=== PATIENT | female | born 1960 | race Hispanic/Latino ===

== ENCOUNTER 2016-12-14 12:28 | Emergency (ER) | payer MEDICAID ==
[2016-12-14 13:28] LABS: Basophils % (Auto) 1.2 % (0.0-1.8); Eosinophils % (Auto) 12.4 % (0.0-4.3); Hematocrit 35.9 % (30.3-42.9); Hemoglobin 11.9 gm/dl (10.1-14.3); Mean Corpuscular HGB Conc 33 % (30-34); Mean Corpuscular Hemoglobin 29 pg (28-32); Mean Corpuscular Volume 88 fl (79-97); Platelet Count 184 K/mm3 (140-440); Red Blood Count 4.06 M/mm3 (3.65-5.03); Red Cell Distribution Width 13.8 % (13.2-15.2); White Blood Count 7.7 K/mm3 (4.5-11.0)
[2016-12-14 13:45] LABS: Alanine Aminotransferase 11 units/L (7-56); Albumin 4.2 g/dL (3.9-5); Albumin/Globulin Ratio 1.5 %; Alkaline Phosphatase 68 units/L (35-129); Anion Gap 17 mmol/L; Blood Urea Nitrogen 14 mg/dL (7-17); Carbon Dioxide 28 mmol/L (22-30); Chloride 100.7 mmol/L (98-107); Glucose 102 mg/dL (65-100); Lipase 14 units/L (13-60); Potassium 3.9 mmol/L (3.6-5.0); Sodium 142 mmol/L (137-145)
[2016-12-14 14:20] LABS: Bilirubin,Urine NEG (Negative); Blood,Urine SM (Negative); Ketones,Urine NEG (Negative); Leukocyte Esterase,Urine MOD (Negative); Mucus,Urine FEW /HPF; Nitrite,Urine NEG (Negative); Protein,Urine <15 mg/dL mg/dL (Negative); Urobilinogen,Urine < 2.0 mg/dL (<2.0)
[2016-12-14] MEDS ORDERED: ROCEPHIN IM ONE (17:45)
[2016-12-14] MEDS ORDERED: ZOFRAN ODT PO ONE (17:45)
[2016-12-14] MEDS ORDERED: PERCOCET 5/325 PO ONE (17:45)
--- NOTE | 2016-12-14 19:14 | Emergency Department Report ---
Entered by ANTONY GLEASON, acting as scribe for NADEEM COLLADO PA. ED Abdominal Pain HPI - General Chief Complaint: Abdominal Pain Stated Complaint: FRANCINE Time Seen by Provider: 12/14/16 17:25 Source: patient Mode of arrival: Wheelchair Limitations: Physical Limitation (patient uses rolling walker) - History of Present Illness Initial Comments: 55 y/o female presents to the ED c/o abdominal pain x couple weeks. Associated symptoms include nausea, dysuria, frequency and urgency but she denies fever, chills, diarrhea and vomiting. Pain is described as 10/10 on a severity scale. No alleviating factors but aggravated with movement. Patient said that she had constipation but that has been resolved 2 weeks ago NKDA. Pain is located in her pelvic area and it comes and goes. She says she did not take anything over- the-counter for pain. Denies any blood in her urine. Patient also complaining chronic pain from arthritis and she says she see an orthopedic doctor but she is requesting a pain specialist. She is also requesting a health information assistant. Since that she has an orthopedic doctor and a primary care doctor but the primary care doctor will refer her to pain clinic or health information assistant. She has chronic pain. Patient is on oxygen for bronchitis, asthma and COPD. She denies that she has any difference in her breathing. It was reported on triage sheet the patient was complaining of difficulty breathing and she says she is usually short of breath. She denies any chest pain. MD Complaint: abdominal pain -: days(s) (abdominal pain and urinary burning x 4 days), year(s) (chronic pain from arthritis) Location: suprapubic Radiation: none Migration to: no migration Severity: severe Severity scale (0 -10): 10 Quality: aching Consistency: constant Improves With: nothing Worsens With: movement Context: other (patient with chronic pain from arthritis) Associated Symptoms: nausea, dysuria, other (frequency, urgency). denies: vomiting, diarrhea, fever, chills, constipation, hematemesis, hematochezia, melena, hematuria, anorexia, syncope Treatments Prior to Arrival: other (none) - Related Data Previous Rx's Medication Instructions Recorded Last Taken Type Omeprazole Magnesium [Prilosec Otc] 20 mg PO QDAY #3 tablet. 06/14/13 Unknown Rx Prednisone [predniSONE (Bill) ER 5 mg PO QDAY #3 tablet. 06/14/13 Unknown Rx TAB] Levofloxacin [Levaquin TAB] 500 mg PO QDAY #7 tablet 12/14/16 Unknown Rx Ondansetron [Zofran TAB] 4 mg PO Q8HR PRN #12 tablet 12/14/16 Unknown Rx traMADol [Ultram] 50 mg PO Q6HR PRN #20 tablet 12/14/16 Unknown Rx Allergies Allergy/AdvReac Type Severity Reaction Status Date / Time Iodinated Contrast Media - Allergy Rash Verified 12/14/16 12:53 IV Dye ED Review of Systems Comment: All other systems reviewed and negative Constitutional: no symptoms reported. denies: chills, fever, malaise, weakness Eyes: denies: eye pain, eye discharge, vision change ENT: denies: ear pain, throat pain, dental pain, hearing loss, epistaxis, congestion Respiratory: no symptoms reported Cardiovascular: denies: chest pain, palpitations, edema, paroxysmal nocturnal dyspnea Gastrointestinal: abdominal pain, nausea, constipation. denies: vomiting, diarrhea Genitourinary: urgency, dysuria, frequency. denies: hematuria, discharge Musculoskeletal: back pain, arthralgia. denies: joint swelling, myalgia Skin: denies: rash Neurological: abnormal gait (and uses a walker). denies: headache, weakness, numbness, paresthesias, confusion ED Past Medical Hx - Past Medical History Previous Medical History?: Yes Hx Diabetes: Yes (BORDERLINE) Hx GERD: Yes Hx Arthritis: Yes (RHEUMATOID) Hx Seizures: Yes (CHILD) Hx Asthma: Yes Hx COPD: Yes Additional medical history: NERVE DAMAGE LOWER LEGS. COON'S CYST LEFT KNEE. HYPOTHYROID. HIGH CHOLESTEROL. VERTIGO. HARD OF HEARING. PSORIASIS. CATARACTS - Surgical History Past Surgical History?: Yes Additional Surgical History: Skin graft 2013, , Hernia, and tubal ligation - Family History Family history: hypertension - Social History Smoking Status: Current Every Day Smoker Substance Use Type: Prescribed - Medications Home Medications: Home Medications Medication Instructions Recorded Confirmed Last Taken Type Omeprazole Magnesium [Prilosec Otc] 20 mg PO QDAY #3 tablet. 06/14/13 Unknown Rx Prednisone [predniSONE (Bill) ER 5 mg PO QDAY #3 tablet. 06/14/13 Unknown Rx TAB] Levofloxacin [Levaquin TAB] 500 mg PO QDAY #7 tablet 12/14/16 Unknown Rx Ondansetron [Zofran TAB] 4 mg PO Q8HR PRN #12 tablet 12/14/16 Unknown Rx traMADol [Ultram] 50 mg PO Q6HR PRN #20 tablet 12/14/16 Unknown Rx ED Physical Exam - General Limitations: Physical Limitation (patient uses a rolling walker) General appearance: alert, in no apparent distress - Head Head exam: Present: atraumatic, normocephalic, normal inspection - Eye Eye exam: Present: normal appearance, PERRL, EOMI. Absent: scleral icterus, conjunctival injection, nystagmus, periorbital swelling, periorbital tenderness Pupils: Present: normal accommodation - ENT ENT exam: Present: normal exam, normal orophraynx, mucous membranes moist, TM's normal bilaterally, normal external ear exam - Neck Neck exam: Present: normal inspection, full ROM. Absent: tenderness, meningismus, lymphadenopathy, thyromegaly - Respiratory Respiratory exam: Present: decreased breath sounds, other (wear oxygen 24/7). Absent: respiratory distress, wheezes, rales, rhonchi, stridor, chest wall tenderness, accessory muscle use, prolonged expiratory - Cardiovascular Cardiovascular Exam: Present: regular rate, normal rhythm, normal heart sounds. Absent: bradycardia, tachycardia, irregular rhythm, systolic murmur, diastolic murmur, rubs, gallop, S3, S4 - GI/Abdominal GI/Abdominal exam: Present: soft, normal bowel sounds. Absent: distended, tenderness, guarding, rebound, rigid, mass, bruit - Extremities Exam Extremities exam: Present: normal inspection, normal capillary refill, other ( brace on left knee due to chronic injury pain, chronic arthritis,no neurovascular compromise, 2+ pulses). Absent: full ROM (diminished strength. Bilateral lower extremity due to arthritis), tenderness, pedal edema, joint swelling, calf tenderness - Back Exam Back exam: Present: normal inspection, full ROM. Absent: tenderness, CVA tenderness (R), CVA tenderness (L), muscle spasm, paraspinal tenderness, vertebral tenderness, rash noted - Neurological Exam Neurological exam: Present: alert, oriented X3, abnormal gait (abnormal gait due to chronic pain from arthritis), motor sensory deficit (decrease in motor function bilateral lower extremity due to chronic pain. Sensation), reflexes normal - Psychiatric Psychiatric exam: Present: normal affect, normal mood - Skin Skin exam: Present: warm, dry, intact, normal color. Absent: rash ED Course Vital Signs 12/14/16 12:53 Temperature 98.6 F Pulse Rate 85 Respiratory 20 Rate Blood Pressure 106/58 O2 Sat by Pulse 97 Oximetry - Reevaluation(s) Reevaluation #1: 12/14/16 18:57 Patient given Percocet 5/325 2 tablets and Zofran 4 mg ODT and emergency room for pain. ED Medical Decision Making - Lab Data Result diagrams: 12/14/16 13:07 12/14/16 13:07 Lab Results 12/14/16 12/14/16 12/14/16 Range/Units 12:43 13:07 13:07 WBC 7.7 (4.5-11.0) K/mm3 RBC 4.06 (3.65-5.03) M/mm3 Hgb 11.9 (10.1-14.3) gm/dl Hct 35.9 (30.3-42.9) % MCV 88 (79-97) fl MCH 29 (28-32) pg MCHC 33 (30-34) % RDW 13.8 (13.2-15.2) % Plt Count 184 (140-440) K/mm3 Lymph % (Auto) 24.0 (13.4-35.0) % Mccone % (Auto) 7.8 H (0.0-7.3) % Eos % (Auto) 12.4 H (0.0-4.3) % Baso % (Auto) 1.2 (0.0-1.8) % Lymph # 1.9 (1.2-5.4) K/mm3 Mccone # 0.6 (0.0-0.8) K/mm3 Eos # 1.0 H (0.0-0.4) K/mm3 Baso # 0.1 (0.0-0.1) K/mm3 Seg Neutrophils % 54.6 (40.0-70.0) % Seg Neutrophils # 4.2 (1.8-7.7) K/mm3 Sodium 142 (137-145) mmol/L Potassium 3.9 (3.6-5.0) mmol/L Chloride 100.7 (98-107) mmol/L Carbon Dioxide 28 (22-30) mmol/L Anion Gap 17 mmol/L BUN 14 (7-17) mg/dL Creatinine 0.5 L (0.7-1.2) mg/dL Estimated GFR > 60 ml/min BUN/Creatinine Ratio 28.00 % Glucose 102 H (65-100) mg/dL POC Glucose 154 H (70-105) Calcium 9.0 (8.4-10.2) mg/dL Total Bilirubin 0.20 (0.1-1.2) mg/dL AST 12 (5-40) units/L ALT 11 (7-56) units/L Alkaline Phosphatase 68 (35-129) units/L Total Protein 7.0 (6.3-8.2) g/dL Albumin 4.2 (3.9-5) g/dL Albumin/Globulin Ratio 1.5 % Lipase 14 (13-60) units/L Urine Color (Yellow) Urine Turbidity (Clear) Urine pH (5.0-7.0) Ur Specific Crestline (1.003-1.030) Urine Protein (Negative) mg/dL Urine Glucose (UA) (Negative) mg/dL Urine Ketones (Negative) mg/dL Urine Blood (Negative) Urine Nitrite (Negative) Urine Bilirubin (Negative) Urine Urobilinogen (<2.0) mg/dL Ur Leukocyte Esterase (Negative) Urine WBC (Auto) (0.0-6.0) /HPF Urine RBC (Auto) (0.0-6.0) /HPF U Epithel Cells (Auto) (0-13.0) /HPF Hyaline Casts /LPF Urine Mucus /HPF 12/14/16 Range/Units 13:46 WBC (4.5-11.0) K/mm3 RBC (3.65-5.03) M/mm3 Hgb (10.1-14.3) gm/dl Hct (30.3-42.9) % MCV (79-97) fl MCH (28-32) pg MCHC (30-34) % RDW (13.2-15.2) % Plt Count (140-440) K/mm3 Lymph % (Auto) (13.4-35.0) % Mccone % (Auto) (0.0-7.3) % Eos % (Auto) (0.0-4.3) % Baso % (Auto) (0.0-1.8) % Lymph # (1.2-5.4) K/mm3 Mccone # (0.0-0.8) K/mm3 Eos # (0.0-0.4) K/mm3 Baso # (0.0-0.1) K/mm3 Seg Neutrophils % (40.0-70.0) % Seg Neutrophils # (1.8-7.7) K/mm3 Sodium (137-145) mmol/L Potassium (3.6-5.0) mmol/L Chloride (98-107) mmol/L Carbon Dioxide (22-30) mmol/L Anion Gap mmol/L BUN (7-17) mg/dL Creatinine (0.7-1.2) mg/dL Estimated GFR ml/min BUN/Creatinine Ratio % Glucose (65-100) mg/dL POC Glucose (70-105) Calcium (8.4-10.2) mg/dL Total Bilirubin (0.1-1.2) mg/dL AST (5-40) units/L ALT (7-56) units/L Alkaline Phosphatase (35-129) units/L Total Protein (6.3-8.2) g/dL Albumin (3.9-5) g/dL Albumin/Globulin Ratio % Lipase (13-60) units/L Urine Color Yellow (Yellow) Urine Turbidity Clear (Clear) Urine pH 6.0 (5.0-7.0) Ur Specific [place] 1.019 (1.003-1.030) Urine Protein <15 mg/dl (Negative) mg/dL Urine Glucose (UA) Neg (Negative) mg/dL Urine Ketones Neg (Negative) mg/dL Urine Blood Sm (Negative) Urine Nitrite Neg (Negative) Urine Bilirubin Neg (Negative) Urine Urobilinogen < 2.0 (<2.0) mg/dL Ur Leukocyte Esterase Mod (Negative) Urine WBC (Auto) 3.0 (0.0-6.0) /HPF Urine RBC (Auto) 8.0 (0.0-6.0) /HPF U Epithel Cells (Auto) 4.0 (0-13.0) /HPF Hyaline Casts 1 /LPF Urine Mucus Few /HPF Urine culture pending - Medical Decision Making ED course: Patient here complaining of dysuria and lower abdominal pain pelvic area. She has multiple other request for referral to dermatology and pain clinic and arthritis doctor. I told patient that I will give her referral to dermatology but her orthopedic or primary care doctor can refer her to pain management and that arthritis can be managed by her orthopedic doctor. Patient urinalysis positive for moderate leukocyte Estrace small amount of blood. Urine culture sent and pending. Patient was given Rocephin 1 g IM in emergency room for UTI without adverse reaction. He was given Percocet 5/325 2 tablets and Zofran 4 mg ODT for pain and nausea. Diagnosis and treatment plan discussed and I told patient that I could only give her Ultram on discharge and she is in agreement. Labs: UA positive leukocyte Estrace, small blood otherwise normal. CBC and BMP normal. Assessment/plan 1. Dysuria 2. Acute cystitis with hematuria 3. Pelvic pain 4. Chronic pain from osteoarthritis Patient discharged home in stable condition and referred to dermatology and she will talk to her primary care physician and orthopedic doctor regarding pain management referral. patient Discharged home with prescription for Ultram, Levaquin and Zofran. Patient discharged home from ED Medicare transport ED Disposition Clinical Impression: Dysuria, Cystitis with hematuria, Chronic pain syndrome, Pelvic pain, Nausea alone Disposition: - TO HOME OR SELFCARE Is pt being admited?: No Does the pt Need Aspirin: No Condition: Stable Instructions: Abdominal Pain (ED), Urinary Tract Infection in Women (ED), Dysuria (ED), Chronic Pain (ED) Additional Instructions: Please use Ultram as needed for pain and follow-up via primary care and orthopedic doctor in 2-3 days Takeantibiotic as prescribed for urinary tract infection drink plenty of water. Please stop smoking and as smoking with oxygen can cause a fire. Also, smoking with COPD can increase the progression of COPD Prescriptions: Levofloxacin [Levaquin TAB] 500 mg PO QDAY #7 tablet Ondansetron [Zofran TAB] 4 mg PO Q8HR PRN #12 tablet PRN Reason: Nausea traMADol [Ultram] 50 mg PO Q6HR PRN #20 tablet PRN Reason: Pain Referrals: PRIMARY CARE, [Primary Care Provider] - 2-3 Days PHILIPPE SALEEM MD [Staff Physician] - 3-5 Days This documentation as recorded by the VICTORINO contreras ELIZABETH,accurately reflects the service I personally performed and the decisions made by me,NADEEM COLLADO PA.
[2016-12-14 19:17] VITALS: BP 132/69
== END 2016-12-14 19:33 | disposition home or self-care (01) ==
LOC: ED 12:28
DX: N30.91 Cystitis, unspecified with hematuria (principal); G89.4 Chronic pain syndrome; M19.90 Unspecified osteoarthritis, unspecified site; K21.9 Gastro-esophageal reflux disease without esophagitis; J45.909 Unspecified asthma, uncomplicated; J44.9 Chronic obstructive pulmonary disease, unspecified; E03.9 Hypothyroidism, unspecified; E78.00 Pure hypercholesterolemia, unspecified; F17.200 Nicotine dependence, unspecified, uncomplicated; Z98.51 Tubal ligation status; Z91.041 Radiographic dye allergy status
CPT/HCPCS: 36415; 80053; 81001; 82962; 83690; 85025; 87086; 96372; 99284; J0696; Q0162

== ENCOUNTER 2016-12-29 12:11 | Emergency (ER) | payer MEDICAID ==
[2016-12-29 13:44] LABS: Hematocrit 32.3 % (30.3-42.9); Hemoglobin 10.4 gm/dl (10.1-14.3); Mean Corpuscular HGB Conc 32 % (30-34); Mean Corpuscular Hemoglobin 29 pg (28-32); Mean Corpuscular Volume 91 fl (79-97); Red Blood Count 3.57 M/mm3 (3.65-5.03); Red Cell Distribution Width 14.1 % (13.2-15.2); White Blood Count 9.1 K/mm3 (4.5-11.0)
[2016-12-29 13:45] LABS: Eosinophils % (Auto) 8.3 % (0.0-4.3); Platelet Count 138 K/mm3 (140-440)
[2016-12-29 13:46] LABS: Basophils % (Auto) 1.2 % (0.0-1.8); Diff Status Complete
[2016-12-29 13:58] LABS: BUN/Creatinine Ratio 33.33; Blood Urea Nitrogen 20 mg/dL (7-17); Calcium 8.7 mg/dL (8.4-10.2); Carbon Dioxide 28 mmol/L (22-30); Glucose 74 mg/dL (65-100)
[2016-12-29 13:59] LABS: Anion Gap 16 mmol/L; Potassium 4.3 mmol/L (3.6-5.0); Sodium 143 mmol/L (137-145)
[2016-12-29] MEDS ORDERED: FLEXERIL PO ONE (23:24)
--- NOTE | 2016-12-29 23:31 | Emergency Department Report ---
HPI - General Chief Complaint: Extremity Injury, Upper Time Seen by Provider: 12/29/16 23:24 - HPI HPI: Patient complaining of muscle aches upper and lower extremity, 4-10 mildly elevated with Ultram. Patient stated her Ultram helps the pain from a 7 out of 10 to 4 out of 10. Patient also state worsening of her psoriasis plaque in her hands and feet. Patient denies any fever, chills, night sweats, drainage from lesions. ED Past Medical Hx - Past Medical History Previous Medical History?: Yes Hx Diabetes: Yes (BORDERLINE) Hx GERD: Yes Hx Arthritis: Yes (RHEUMATOID) Hx Seizures: Yes (CHILD) Hx Asthma: Yes Hx COPD: Yes Additional medical history: NERVE DAMAGE LOWER LEGS. COON'S CYST LEFT KNEE. HYPOTHYROID. HIGH CHOLESTEROL. VERTIGO. HARD OF HEARING. PSORIASIS. CATARACTS - Surgical History Past Surgical History?: Yes Additional Surgical History: Skin graft 2012, , Hernia, and tubal ligation - Social History Smoking Status: Current Every Day Smoker Substance Use Type: None - Medications Home Medications: Home Medications Medication Instructions Recorded Confirmed Last Taken Type Omeprazole Magnesium [Prilosec Otc] 20 mg PO QDAY #3 tablet. 06/14/13 Unknown Rx Prednisone [predniSONE (Bill) ER 5 mg PO QDAY #3 tablet. 06/14/13 Unknown Rx TAB] Levofloxacin [Levaquin TAB] 500 mg PO QDAY #7 tablet 12/14/16 Unknown Rx Ondansetron [Zofran TAB] 4 mg PO Q8HR PRN #12 tablet 12/14/16 Unknown Rx traMADol [Ultram] 50 mg PO Q6HR PRN #20 tablet 12/14/16 Unknown Rx Cyclobenzaprine [Flexeril] 10 mg PO TID PRN #15 tablet 12/29/16 Unknown Rx ED Review of Systems ROS: Stated complaint: SPASM Other details as noted in HPI Comment: All other systems reviewed and negative Endocrine: no symptoms reported Gastrointestinal: as per HPI Genitourinary: as per HPI Skin: rash, lesions Physical Exam - Physical Exam Vital Signs: Vital Signs 12/29/16 12/29/16 12:17 18:00 Temperature 98.3 F Pulse Rate 87 83 Respiratory 16 18 Rate Blood Pressure 109/64 100/62 O2 Sat by Pulse 100 100 Oximetry Physical Exam: Physical Exam: - General Limitations: No Limitations General appearance: alert, in no apparent distress, obese - Head Head exam: Present: atraumatic, normocephalic - Eye Eye exam: Present: normal appearance - ENT ENT exam: Present: mucous membranes moist - Neck Neck exam: Present: normal inspection - Respiratory Respiratory exam: Present: normal lung sounds bilaterally. Absent: respiratory distress - Cardiovascular Cardiovascular Exam: Present: normal rhythm, tachycardia. Absent: systolic murmur, diastolic murmur, rubs, gallop - GI/Abdominal GI/Abdominal exam: Present: soft, normal bowel sounds - Extremities Exam Extremities exam: Present: normal inspection - Back Exam Back exam: Present: normal inspection - Neurological Exam Neurological exam: Present: alert, oriented X3 - Psychiatric Psychiatric exam: normal affect and mood - Skin Skin exam: Present: Psoriasis plaques in hands and feet ED Course Vital Signs 12/29/16 12/29/16 12:17 18:00 Temperature 98.3 F Pulse Rate 87 83 Respiratory 16 18 Rate Blood Pressure 109/64 100/62 O2 Sat by Pulse 100 100 Oximetry ED Medical Decision Making - Lab Data Result diagrams: 12/29/16 12:55 12/29/16 12:55 Critical care attestation.: If time is entered above; I have spent that time in minutes in the direct care of this critically ill patient, excluding procedure time. ED Disposition Clinical Impression: Plaque psoriasis, Muscle spasm Disposition: DC-01 TO HOME OR SELFCARE Is pt being admited?: No Does the pt Need Aspirin: No Condition: Stable Prescriptions: Cyclobenzaprine [Flexeril] 10 mg PO TID PRN #15 tablet PRN Reason: Muscle Spasm Referrals: PRIMARY CARE, [Primary Care Provider] - 3-5 Days
[2016-12-30 00:03] VITALS: BP 111/62
== END 2016-12-30 00:03 | disposition home or self-care (01) ==
LOC: ED 12:11
DX: L40.0 Psoriasis vulgaris (principal); M62.838 Other muscle spasm; E11.9 Type 2 diabetes mellitus without complications; K21.9 Gastro-esophageal reflux disease without esophagitis; M19.90 Unspecified osteoarthritis, unspecified site; J44.9 Chronic obstructive pulmonary disease, unspecified; F17.210 Nicotine dependence, cigarettes, uncomplicated
CPT/HCPCS: 36415; 80048; 85025; 99284

== ENCOUNTER 2017-01-27 17:03 | Emergency (ER) | payer MEDICAID ==
--- NOTE | 2017-01-27 18:56 | Emergency Department Report ---
ED Dizziness HPI - General Chief Complaint: Chest Pain Stated Complaint: CP Time Seen by Provider: 01/27/17 18:55 Source: patient Mode of arrival: Ambulatory Limitations: No Limitations - Related Data Previous Rx's Medication Instructions Recorded Last Taken Type Omeprazole Magnesium [Prilosec Otc] 20 mg PO QDAY #3 tablet. 06/14/13 Unknown Rx Prednisone [predniSONE (Bill) ER 5 mg PO QDAY #3 tablet. 06/14/13 Unknown Rx TAB] Levofloxacin [Levaquin TAB] 500 mg PO QDAY #7 tablet 12/14/16 Unknown Rx Ondansetron [Zofran TAB] 4 mg PO Q8HR PRN #12 tablet 12/14/16 Unknown Rx traMADol [Ultram] 50 mg PO Q6HR PRN #20 tablet 12/14/16 Unknown Rx Cyclobenzaprine [Flexeril] 10 mg PO TID PRN #15 tablet 12/29/16 Unknown Rx Allergies Allergy/AdvReac Type Severity Reaction Status Date / Time Iodinated Contrast Media - Allergy Rash Verified 12/14/16 12:53 IV Dye ED Review of Systems ROS: Stated complaint: CP Other details as noted in HPI ED Past Medical Hx - Past Medical History Hx Diabetes: Yes (BORDERLINE) Hx GERD: Yes Hx Arthritis: Yes (RHEUMATOID) Hx Seizures: Yes (CHILD) Hx Asthma: Yes Hx COPD: Yes Additional medical history: NERVE DAMAGE LOWER LEGS. COON'S CYST LEFT KNEE. HYPOTHYROID. HIGH CHOLESTEROL. VERTIGO. HARD OF HEARING. PSORIASIS. CATARACTS - Surgical History Additional Surgical History: Skin graft 2013, , Hernia, and tubal ligation - Social History Smoking Status: Current Every Day Smoker Substance Use Type: None - Medications Home Medications: Home Medications Medication Instructions Recorded Confirmed Last Taken Type Omeprazole Magnesium [Prilosec Otc] 20 mg PO QDAY #3 tablet. 06/14/13 Unknown Rx Prednisone [predniSONE (Bill) ER 5 mg PO QDAY #3 tablet. 06/14/13 Unknown Rx TAB] Levofloxacin [Levaquin TAB] 500 mg PO QDAY #7 tablet 12/14/16 Unknown Rx Ondansetron [Zofran TAB] 4 mg PO Q8HR PRN #12 tablet 12/14/16 Unknown Rx traMADol [Ultram] 50 mg PO Q6HR PRN #20 tablet 12/14/16 Unknown Rx Cyclobenzaprine [Flexeril] 10 mg PO TID PRN #15 tablet 12/29/16 Unknown Rx ED Physical Exam - General Limitations: No Limitations ED Course Vital Signs 01/27/17 17:30 Temperature 98.4 F Pulse Rate 74 Respiratory 24 Rate Blood Pressure 100/62 O2 Sat by Pulse 100 Oximetry Critical care attestation.: If time is entered above; I have spent that time in minutes in the direct care of this critically ill patient, excluding procedure time. ED Disposition Condition: Stable
--- NOTE | 2017-01-27 19:01 | Emergency Department Report ---
Chief Complaint: Chest Pain Stated Complaint: CP Time Seen by Provider: 01/27/17 18:55 - HPI History of Present Illness: Patient reports that she is having chest pain all day and shortness of breath. Report abdominal pain from chronic constipation times one none. Patient says that she has COPD and rheumatoid arthritis. She still smoking. Patient while in the emergency room went to have some cigarettes. She also reported that she isn't oxygen and also has asthma, nerve damage to her legs, vertigo, hypothyroidism, psoriasis seizure disorder. She reports her pain is 10 out of 10 generalized. Denies any nausea or vomiting. Chest pain and abdominal pain is 10 out of 10 and feels achy. She says she wears oxygen truly does this cannula when she is at home but her oxygenation is 100% on room air. She denies any fever or chills. Denies any cough and - ROS Review of Systems: Systems are negative unless stated in HPI above - Exam Vital Signs: Vital Signs 01/27/17 17:30 Temperature 98.4 F Pulse Rate 74 Respiratory 24 Rate Blood Pressure 100/62 O2 Sat by Pulse 100 Oximetry Physical Exam: Gen.: This is a 56-year-old female well-nourished well-developed in no acute distress. Lungs: Diminished energy throughout lung soler, no adventitious sounds heard. Shortness of breath and exertion which is normal for patient. Abdomen: Nontender to palpate in all quadrant no guarding rebound tenderness. Normal bowel sounds in all quadrants CV: S1, S2. Regular rate and rhythm negative murmur MSE screening note: Focused history and physical exam performed. Due to findings the following was ordered:See mdm ED Medical Decision Making - Medical Decision Making MDM: Patient screened by provider in triage area. Appropriate protocol initiated and patient to be seen in main ED by ED Disposition for MSE Condition: Stable
[2017-01-27 19:47] LABS: Basophils % (Auto) 0.3 % (0.0-1.8); Eosinophils % (Auto) 4.6 % (0.0-4.3); Hematocrit 30.2 % (30.3-42.9); Hemoglobin 10.3 gm/dl (10.1-14.3); Mean Corpuscular HGB Conc 34 % (30-34); Mean Corpuscular Hemoglobin 30 pg (28-32); Mean Corpuscular Volume 88 fl (79-97); Platelet Count 167 K/mm3 (140-440); Red Blood Count 3.45 M/mm3 (3.65-5.03); Red Cell Distribution Width 14.4 % (13.2-15.2); White Blood Count 9.1 K/mm3 (4.5-11.0)
[2017-01-27 20:01] LABS: Alanine Aminotransferase 6 units/L (7-56); Albumin 4.3 g/dL (3.9-5); Albumin/Globulin Ratio 2.2 %; Alkaline Phosphatase 64 units/L (35-129); Anion Gap 17 mmol/L; BUN/Creatinine Ratio 32; Bilirubin,Total < 0.20 mg/dL (0.1-1.2); Blood Urea Nitrogen 19 mg/dL (7-17); Calcium 8.3 mg/dL (8.4-10.2); Carbon Dioxide 25 mmol/L (22-30); Chloride 102.6 mmol/L (98-107); Glucose 125 mg/dL (65-100); Lipase 15 units/L (13-60); Potassium 4.3 mmol/L (3.6-5.0); Sodium 140 mmol/L (137-145); Total Protein 6.3 g/dL (6.3-8.2)
[2017-01-28 01:55] VITALS: BP 117/61
--- NOTE | 2017-01-28 07:56 | XRay Report ---
KUB: Constipation. No bowel dilatation and no increased fecal load identified. No free air. No soft tissue mass. Focal ring of calcification in the left upper quadrant possibly representing small vascular aneurysm. Impression: No acute pathology identified.
--- NOTE | 2017-01-28 08:05 | XRay Report ---
PA and lateral chest: SOB. Compared to prior exam in May 2013. There is pleural thickening at the right lung base with blunting of the costophrenic angle not present on prior study. The lungs otherwise appear generally clear. The aorta is tortuous but the heart is normal in size. These findings are unchanged. Impressions: Nonspecific pleural thickening at right lung base since prior exam. Length of chronicity is unclear.
== END 2017-01-28 06:48 | disposition left against medical advice (07) ==
LOC: ED 17:03
DX: R07.89 Other chest pain (principal); R06.02 Shortness of breath; R10.9 Unspecified abdominal pain; Z53.21 Procedure and treatment not carried out due to patient leaving prior to being seen by health care provider
CPT/HCPCS: 36415; 71020; 74020; 80053; 83690; 84484; 85025; 93005; 93010

== ENCOUNTER 2017-06-26 17:15 | Emergency (ER) | payer MEDICAID ==
[2017-06-26 18:10] LABS: Basophils % (Auto) 0.1 % (0.0-1.8); Eosinophils # (Auto) 0.5 K/mm3 (0.0-0.4); Eosinophils % (Auto) 6.3 % (0.0-4.3); Hematocrit 30.6 % (30.3-42.9); Hemoglobin 10.1 gm/dl (10.1-14.3); Lymphocytes # (Auto) 2.2 K/mm3 (1.2-5.4); Lymphocytes % (Auto) 25.6 % (13.4-35.0); Mean Corpuscular HGB Conc 33 % (30-34); Mean Corpuscular Hemoglobin 29 pg (28-32); Mean Corpuscular Volume 89 fl (79-97); Monocytes # (Auto) 0.6 K/mm3 (0.0-0.8); Monocytes % (Auto) 6.9 % (0.0-7.3); Platelet Count 180 K/mm3 (140-440); Red Blood Count 3.44 M/mm3 (3.65-5.03); Red Cell Distribution Width 15.2 % (13.2-15.2)
[2017-06-26 18:21] LABS: BUN/Creatinine Ratio 32; Blood Urea Nitrogen 16 mg/dL (7-17); Calcium 8.4 mg/dL (8.4-10.2); Hemolysis Index 5
[2017-06-26 20:15] LABS: Bacteria,Urine 1+ /HPF (Negative); Bilirubin,Urine NEG (Negative); Blood,Urine NEG (Negative); Color,Urine Yellow (Yellow); Mucus,Urine FEW /HPF; Protein,Urine <15 mg/dL mg/dL (Negative); Urobilinogen,Urine < 2.0 mg/dL (<2.0)
[2017-06-26 20:23] LABS: Amphetamine Screen,Urine PRESUMPTIVE NEGATIVE; Benzodiazepines Screen,Urine PRESUMPTIVE NEGATIVE; Cannabinoid Screen,Urine PRESUMPTIVE NEGATIVE; Cocaine Screen,Urine PRESUMPTIVE NEGATIVE; Methadone Screen,Urine PRESUMPTIVE NEGATIVE; Opiate Screen,Urine PRESUMPTIVE NEGATIVE
--- NOTE | 2017-06-26 22:46 | Emergency Department Report ---
HPI - General Chief Complaint: Psych Time Seen by Provider: 06/26/17 19:07 - HPI HPI: The patient's physician female presents for evaluation of mental health. The patient reports experiencing constant severe sadness and upsetness for 1-2 hours earlier today. She states that she informed her caregiver that she did not want to live anymore because she wants to be moved to another living facility due to her's approval of her roommate. She is adamant that she has no thoughts of harming herself and only stated so in attempt to get placed in another living facility. The patient denies fever, headache, unexplained weight loss or weight gain, heat or cold intolerance, skin, hair, or nail changes, neuro deficits, suicidal ideations, homicidal ideations, or auditory or visual hallucinations. ED Past Medical Hx - Past Medical History Hx Diabetes: Yes (BORDERLINE) Hx GERD: Yes Hx Arthritis: Yes (RHEUMATOID) Hx Seizures: Yes (CHILD) Hx Asthma: Yes Hx COPD: Yes Additional medical history: NERVE DAMAGE LOWER LEGS. COON'S CYST LEFT KNEE. HYPOTHYROID. HIGH CHOLESTEROL. VERTIGO. HARD OF HEARING. PSORIASIS. CATARACTS - Surgical History Past Surgical History?: Yes Additional Surgical History: Skin graft 2013, , Hernia, and tubal ligation - Social History Smoking Status: Current Every Day Smoker Substance Use Type: None - Medications Home Medications: Home Medications Medication Instructions Recorded Confirmed Last Taken Type Omeprazole Magnesium [Prilosec Otc] 20 mg PO QDAY #3 tablet. 06/14/13 Unknown Rx ED Review of Systems ROS: Stated complaint: SUICIDAL THOUGHTS Other details as noted in HPI Constitutional: denies: fever ENT: denies: throat or neck pain Respiratory: denies: cough, shortness of breath Cardiovascular: denies: chest pain Endocrine: denies unexplained weight loss or gain Gastrointestinal: denies: abdominal pain, nausea Genitourinary: denies: dysuria Musculoskeletal: denies: leg swelling Skin: denies: rash Neurological: denies: headache Hematological/Lymphatic: denies: easy bleeding or easy bruising Psych: reports sadness and anger Physical Exam - Physical Exam Physical Exam: General: well-nourished, well-developed, no acute distress Head: Normocephalic, atraumatic Eyes: normal sclera ENT: Mucous membranes are pink and moist Neck: trachea midline, neck supple, No neck stiffness, no cervical adenopathy Respiratory: Breath sounds equal bilaterally, no wheezing, rales, or rhonchi Cardio: S1 and S2 present, no murmurs, rubs, gallops, capillary refill is brisk Abdomen: Normoactive bowel sounds, soft abdomen, no rigidity, no guarding or rebound tenderness Chest WALL/Back: No tenderness to palpation of the chest wall, no CVA tenderness with percussion Musc: No pitting edema Skin: No rash Neuro: no facial drooping, normal speech Psych: Normal affect, depressed mood, normal insight, normal behavior, no suicidal or homicidal ideation ED Medical Decision Making - Lab Data Result diagrams: 06/26/17 18:00 06/26/17 18:00 - Medical Decision Making The patient was seen and examined by myself. The patient is placed on a clinical research monitor and continuous pulse ox. On initial evaluation, the patient was found to be in no distress. Labs are obtained. Lab results are grossly unremarkable. The patient is medically clear. Mental health is consulted. Mental health evaluates the patient and agrees that the patient is not a risk for harming herself or others. The patient was reevaluated and reported that their symptoms were markedly improved. The patient is stable for discharge with outpatient follow-up. The patient is given follow-up and return instructions. The patient expressed understanding and agreed with the plan. The patient is discharged in stable condition. Critical care attestation.: If time is entered above; I have spent that time in minutes in the direct care of this critically ill patient, excluding procedure time. ED Disposition Clinical Impression: Mood disorder Depressed Qualifiers: Depression Type: unspecified Qualified Code(s): F32.9 - Major depressive disorder, single episode, unspecified Disposition: - TO HOME OR SELFCARE Is pt being admited?: No Does the pt Need Aspirin: No Condition: Stable Instructions: Mood Disorders (ED), Depression (ED) Referrals: PRIMARY CARE, [Primary Care Provider] - 3-5 Days [facility] [Outside] - 3-5 Days Time of Disposition: 22:48
[2017-06-27 03:31] VITALS: BP 104/66
== END 2017-06-27 03:05 | disposition home or self-care (01) ==
LOC: ED 17:15
DX: F39 Unspecified mood [affective] disorder (principal); F32.9 Major depressive disorder, single episode, unspecified; K21.9 Gastro-esophageal reflux disease without esophagitis; M06.9 Rheumatoid arthritis, unspecified; J45.909 Unspecified asthma, uncomplicated; F17.200 Nicotine dependence, unspecified, uncomplicated
CPT/HCPCS: 36415; 80048; 80307; 81001; 85025; 99283; G0480; 80320

== ENCOUNTER 2017-06-27 04:11 | Emergency (ER) | payer MEDICAID ==
--- NOTE | 2017-06-27 09:39 | Ultrasound Report ---
ULTRASOUND EXTREMITY NONVASCULAR LEFT History: Left hand swelling, mass. Technique: Grayscale ultrasound with color Doppler interrogation. Findings: Ultrasound demonstrates 2 ovoid masses within the palmar soft tissues of the left hand. The largest mass overlies the thenar eminence and measures 4.1 x 2.5 x 4.5 cm. A second similar appearing mass overlies the hypo-thenar eminence and measures 3.1 x 2.1 x 2.4 cm. These masses demonstrate similar echogenicity to subcutaneous fat. There is trace internal perfusion on color Doppler interrogation. No cystic change or calcifications. These may represent lipomas. Impression: Left palmar masses as outlined above which are most consistent with lipomas on ultrasound. These would be best evaluated with MRI with and without contrast if further evaluation is needed.
[2017-06-27 10:34] VITALS: BP 108/53
--- NOTE | 2017-06-27 10:39 | Emergency Department Report ---
Upper Extremity - HPI Chief Complaint: Extremity Injury, Upper Stated Complaint: SWOLLING HAND Time Seen by Provider: 06/27/17 07:48 Upper Extremity: Left Hand (swollen and pain) Occurred When: >5 Days (3 months) Mechanism: Unsure Severity: moderate Symptoms: Yes Pain with Movement, Yes Swelling, No Deformity, No Limited Range of Movement, No Numbness, No Weakness, No Bruising/Ecchymosis, No Laceration or Abrasion Other History: This is a 56 y.o. female that presents with swelling of left hand for 3 months. She don't recall injury. Reports waking up with a swollen hand. She had x-rays done a few months ago and they where normal. Reports it is hard to wash hair or dishes because of swelling. Her PCP was going to send her to a hand specialist at [facility] but she can't get them on the phone. Denies numbness, tingling, and discoloration. ED Review of Systems ROS: Stated complaint: SWOLLING HAND Other details as noted in HPI Constitutional: denies: chills, fever Respiratory: denies: cough, shortness of breath, wheezing Cardiovascular: denies: chest pain, palpitations Gastrointestinal: denies: abdominal pain, nausea, diarrhea Musculoskeletal: joint swelling (left hand). denies: back pain, arthralgia Skin: other. denies: rash, lesions Neurological: denies: headache, weakness, paresthesias ED Past Medical Hx - Past Medical History Previous Medical History?: Yes Hx Diabetes: Yes (BORDERLINE) Hx GERD: Yes Hx Arthritis: Yes (RHEUMATOID) Hx Seizures: Yes (CHILD) Hx Asthma: Yes Hx COPD: Yes Additional medical history: NERVE DAMAGE LOWER LEGS. COON'S CYST LEFT KNEE. HYPOTHYROID. HIGH CHOLESTEROL. VERTIGO. HARD OF HEARING. PSORIASIS. CATARACTS - Surgical History Past Surgical History?: Yes Additional Surgical History: Skin graft 2013, , Hernia, and tubal ligation - Social History Smoking Status: Current Every Day Smoker Substance Use Type: None - Medications Home Medications: Home Medications Medication Instructions Recorded Confirmed Last Taken Type Omeprazole Magnesium [Prilosec Otc] 20 mg PO QDAY #3 tablet. 06/14/13 Unknown Rx Upper Extremity Exam - Exam General: Vital signs noted. No distress. Alert and acting appropriately. Head and Torso: No HEENT Abnormality, No Neck Tenderness, No Chest/Lungs Abnormality, No Abdominal Tenderness, No Back Tenderness Shoulder Exam: Yes Normal Range of Motion in Shoulder, No Shoulder Tenderness, No Clavicle Tenderness, No Shoulder Deformity, No AC Joint Tenderness Arm Exam: No Arm/Humerus Tenderness, No Arm Deformity Elbow: Yes Normal Range of Motion in Elbow, No Elbow Tenderness, No Elbow Deformity Forearm: No Forearm Tenderness, No Forearm Deformity, No Pain with Pronation, No Pain with Supination Wrist: Yes Wrist Tenderness, Yes Normal ROM in Wrist, No Wrist Deformity, No Snuffbox Tenderness, No Pain with Axial Thumb Compression Hand: Yes Hand Deformity (2 cm mass at medial menon region of left hand, nontender, no redness), Yes Normal ROM in Digit(s), No Hand Tenderness, No Digit Tenderness, No Digit(s) Deformity, No Tendon Dysfunction CMS Exam: Yes Normal Distal Pulses, Yes Normal Capillary Refill, Yes Normal Distal Sensation, No Broken Skin ED Course Vital Signs 06/27/17 06/27/17 06:37 10:32 Temperature 98.2 F 98.8 F Pulse Rate 95 H 85 Respiratory 20 20 Rate Blood Pressure 92/56 108/53 [Right] O2 Sat by Pulse 95 98 Oximetry ED Medical Decision Making - Radiology Data Radiology results: report reviewed US of soft tissue of left hand: left palmar mass which is consistent with lipomas. Need MRI w/o contrast for further evaluation. - Medical Decision Making 56 y.o. female that presents with left hand swelling for 3 months. No distress noted. Patient examined by me. Vitals stable. US of left hand: left palmar mass which is consistent with lipomas. Need MRI w/o contrast for further evaluation. Discussed results with patient. Encouraged to f/u with PCP and [facility] hand specialist. Discharged home in stable condition. Critical care attestation.: If time is entered above; I have spent that time in minutes in the direct care of this critically ill patient, excluding procedure time. ED Disposition Clinical Impression: Lipoma of hand Mass of hand Qualifiers: Laterality: left Qualified Code(s): R22.32 - Localized swelling, mass and lump , left upper limb Disposition: - TO HOME OR SELFCARE Is pt being admited?: No Does the pt Need Aspirin: No Condition: Stable Instructions: Lipoma (ED) Additional Instructions: Follow up with primary care provider in 24-72 hours. Follow up with hand specialist at [facility]. Referrals: [facility] [Outside] - 3-5 Days [facility] [Outside] - 3-5 Days Time of Disposition: 10:48 Print Language: GEORGIAN
== END 2017-06-27 15:08 | disposition home or self-care (01) ==
LOC: ED 04:11
DX: D17.39 Benign lipomatous neoplasm of skin and subcutaneous tissue of other sites (principal); K21.9 Gastro-esophageal reflux disease without esophagitis; M06.9 Rheumatoid arthritis, unspecified; J44.9 Chronic obstructive pulmonary disease, unspecified; E03.9 Hypothyroidism, unspecified; E78.00 Pure hypercholesterolemia, unspecified; F17.200 Nicotine dependence, unspecified, uncomplicated; Z98.51 Tubal ligation status; Z91.041 Radiographic dye allergy status
CPT/HCPCS: 36415; 84550; 99284

== ENCOUNTER 2018-11-16 16:01 | Emergency (ER) | payer MEDICAID ==
--- NOTE | 2018-11-16 16:19 | Emergency Department Report ---
Blank Doc - Documentation Documentation: This is a 57-year-old female that presents with generalized numbness/tingling sensation and right knee pain. This initial assessment/diagnostic orders/clinical plan/treatment(s) is/are subject to change based on patient's health status, clinical progression and re- assessment by fellow clinical providers in the ED. Further treatment and workup at subsequent clinical providers discretion. Patient/guardians urged not to elope from the ED as their condition may be serious if not clinically assessed and managed. Initial orders include: 1- Patient sent to MAIN ED for further evaluation and treatment 2- xray 3- labs
[2018-11-16 16:50] LABS: Basophils % (Auto) 0.5 % (0.0-1.8); Eosinophils # (Auto) 0.3 K/mm3 (0.0-0.4); Eosinophils % (Auto) 3.6 % (0.0-4.3); Hematocrit 30.5 % (30.3-42.9); Hemoglobin 9.8 gm/dl (10.1-14.3); Lymphocytes # (Auto) 1.8 K/mm3 (1.2-5.4); Lymphocytes % (Auto) 20.8 % (13.4-35.0); Mean Corpuscular HGB Conc 32 % (30-34); Mean Corpuscular Volume 92 fl (79-97); Monocytes # (Auto) 0.5 K/mm3 (0.0-0.8); Monocytes % (Auto) 6.2 % (0.0-7.3); Platelet Count 189 K/mm3 (140-440); Red Blood Count 3.34 M/mm3 (3.65-5.03)
--- NOTE | 2018-11-16 16:58 | XRay Report ---
XR knee 3V RT INDICATION / CLINICAL INFORMATION: knee pain. COMPARISON: None available. FINDINGS: BONES/JOINT(S): No acute fracture or subluxation. Moderate tricompartmental DJD with joint space loss and marginal osteophyte formation. Small suprapatellar joint effusion. No aggressive appearing bone lesions. SOFT TISSUES: No significant abnormality. ADDITIONAL FINDINGS: None. Signer Name: Carlos Duckworth MD Signed: 11/16/2018 4:54 PM Workstation Name: [id number]
[2018-11-16 17:07] LABS: Alanine Aminotransferase 9 units/L (7-56); Albumin 4.2 g/dL (3.9-5); BUN/Creatinine Ratio 30; Blood Urea Nitrogen 18 mg/dL (7-17); Calcium 9.1 mg/dL (8.4-10.2); Hemolysis Index 11
[2018-11-16] MEDS ORDERED: MORPHINE IV ONE (20:34)
[2018-11-16] MEDS ORDERED: ZOFRAN IV ONE (20:34)
--- NOTE | 2018-11-16 20:38 | Emergency Department Report ---
ED General Adult HPI - General Chief complaint: Pain General Stated complaint: NUMB/HURTING ALL OVER (R) KNEE PAIN Time Seen by Provider: 11/16/18 16:18 Source: patient, EMS Mode of arrival: Wheelchair Limitations: No Limitations - History of Present Illness Initial comments: Patient is 57 years old female with history of COPD and migraine. Patient pre sented to the ER complaining of headache, similar to previous headache except for generalized numbness that she has this time. She also complaining of right knee pain for the last 3 weeks. Patient denied any recent injury. No fever or chills. Patient denied any weakness, bowel or bladder incontinence. Severity scale (0 -10): 10 - Related Data Previous Rx's Medication Instructions Recorded Last Taken Type Omeprazole Magnesium [Prilosec Otc] 20 mg PO QDAY #3 tablet. 06/14/13 Unknown Rx Allergies Allergy/AdvReac Type Severity Reaction Status Date / Time Iodinated Contrast- Oral and Allergy Rash Verified 06/26/17 17:43 IV Dye ED Review of Systems ROS: Stated complaint: NUMB/HURTING ALL OVER (R) KNEE PAIN Other details as noted in HPI Comment: All other systems reviewed and negative Constitutional: denies: chills, fever Respiratory: denies: cough, orthopnea, shortness of breath, SOB with exertion, SOB at rest, wheezing Cardiovascular: denies: chest pain, palpitations Gastrointestinal: denies: abdominal pain, nausea, vomiting, diarrhea, constipation, hematemesis, melena, hematochezia Musculoskeletal: denies: back pain Neurological: headache, numbness. denies: weakness, paresthesias, confusion, abnormal gait ED Past Medical Hx - Past Medical History Hx Diabetes: Yes (BORDERLINE) Hx GERD: Yes Hx Arthritis: Yes (RHEUMATOID) Hx Seizures: Yes (CHILD) Hx Asthma: Yes Hx COPD: Yes Additional medical history: NERVE DAMAGE LOWER LEGS. COON'S CYST LEFT KNEE. HYPOTHYROID. HIGH CHOLESTEROL. VERTIGO. HARD OF HEARING. PSORIASIS. C ATARACTS - Surgical History Additional Surgical History: Skin graft 2013, , Hernia, and tubal ligation - Social History Smoking Status: Unknown if ever smoked Substance Use Type: None - Medications Home Medications: Home Medications Medication Instructions Recorded Confirmed Last Taken Type Omeprazole Magnesium [Prilosec Otc] 20 mg PO QDAY #3 tablet. 06/14/13 06/26/17 Unknown Rx ED Physical Exam - General Limitations: No Limitations General appearance: alert, in no apparent distress - Head Head exam: Present: atraumatic, normocephalic, normal inspection - Eye Eye exam: Present: normal appearance, PERRL - ENT ENT exam: Present: normal exam, normal orophraynx, mucous membranes moist - Neck Neck exam: Present: normal inspection, full ROM. Absent: tenderness, meningismus, lymphadenopathy, thyromegaly - Respiratory Respiratory exam: Present: normal lung sounds bilaterally - Cardiovascular Cardiovascular Exam: Present: regular rate, normal rhythm, normal heart sounds - GI/Abdominal GI/Abdominal exam: Present: soft, normal bowel sounds. Absent: distended, tenderness, guarding, rebound, rigid, organomegaly, mass, bruit, pulsatile mass, hernia - Extremities Exam Extremities exam: Present: normal inspection, full ROM, normal capillary refill - Back Exam Back exam: Present: normal inspection, full ROM. Absent: CVA tenderness (R), CVA tenderness (L), muscle spasm, paraspinal tenderness, vertebral tenderness - Neurological Exam Neurological exam: Present: alert, oriented X3, CN II-XII intact, normal gait, reflexes normal - Psychiatric Psychiatric exam: Present: normal mood - Skin Skin exam: Present: warm, intact, normal color ED Course Vital Signs 11/16/18 11/16/18 16:16 16:23 Temperature 98.5 F 98.3 F Pulse Rate 89 90 Respiratory 17 18 Rate Blood Pressure 114/75 Blood Pressure 114/75 [Left] O2 Sat by Pulse 94 94 Oximetry ED Medical Decision Making - Lab Data Result diagrams: 11/16/18 16:25 11/16/18 16:25 - Radiology Data Radiology results: report reviewed CT brain is negative for acute finding. - Medical Decision Making Patient is 57 years old female with history of COPD and migraine. Patient presented to the ER complaining of headache, similar to previous headache except for generalized numbness that she has this time. She also complaining of right knee pain for the last 3 weeks. Patient denied any recent injury. No fever or chills. Patient denied any weakness, bowel or bladder incontinence. He received morphine for pain. Patient stated that she is very much better headache improved. CT brain is negative for acute finding. Patient advised to follow-up with her primary care physician in the next 2-3 days and to return to the ER if symptoms are not improved. Critical care attestation.: If time is entered above; I have spent that time in minutes in the direct care of this critically ill patient, excluding procedure time. ED Disposition Clinical Impression: Headache, Right knee pain Disposition: - TO HOME OR SELFCARE Is pt being admited?: No Condition: Stable Instructions: Arthralgia (ED), Migraine Headache (ED) Referrals: PRIMARY CARE, [Primary Care Provider] - 3-5 Days
--- NOTE | 2018-11-16 22:04 | Cat Scan Report ---
CT head/brain wo con INDICATION / CLINICAL INFORMATION: 57 years Female; headache. TECHNIQUE: Routine CT head without contrast. All CT scans at this location are performed using CT dos e reduction for ALARA by means of automated exposure control. COMPARISON: None. FINDINGS: BRAIN / INTRACRANIAL CONTENTS: No acute hemorrhage, mass effect, midline shift, hydrocephalus, or acu te, large territorial infarct. No chronic infarct or focal atrophy. Normal brain volume and ventricul ar/sulcal size for age. No significant white matter abnormality. CRANIOCERVICAL JUNCTION: Chiari I malformation suggested with associated cervical medullary junction compression. ORBITS: No significant abnormality of visualized orbits. SINUSES / MASTOIDS: No significant abnormality of the visualized paranasal sinuses or mastoid air luke ls. ADDITIONAL FINDINGS: None. IMPRESSION: 1. No acute 2. Arnold-Chiari 1 malformation identified. Cervical medullary junction compression noted. Signer Name: Mukul Lopez MD, III Signed: 11/16/2018 10:00 PM Workstation Name: [id number]
[2018-11-16 23:47] VITALS: BP 141/66
== END 2018-11-16 23:04 | disposition home or self-care (01) ==
LOC: ED 16:01
DX: G43.909 Migraine, unspecified, not intractable, without status migrainosus (principal); R20.0 Anesthesia of skin; M25.561 Pain in right knee; E11.9 Type 2 diabetes mellitus without complications; K21.0 Gastro-esophageal reflux disease with esophagitis; M19.90 Unspecified osteoarthritis, unspecified site; J44.9 Chronic obstructive pulmonary disease, unspecified; E03.9 Hypothyroidism, unspecified; E78.00 Pure hypercholesterolemia, unspecified; Z98.51 Tubal ligation status; Z79.899 Other long term (current) drug therapy; Z88.8 Allergy status to other drugs, medicaments and biological substances; Z91.041 Radiographic dye allergy status
CPT/HCPCS: 36415; 70450; 73562; 80053; 85025; 96374; 96375; 99285; J2270; J2405

== ENCOUNTER 2018-11-20 15:45 | Emergency (ER) | payer MEDICAID ==
--- NOTE | 2018-11-20 16:20 | Emergency Department Report ---
ED Abdominal Pain HPI - General Chief Complaint: Abdominal Pain Stated Complaint: ABD PAIN Time Seen by Provider: 11/20/18 16:12 Source: patient, EMS Mode of arrival: Stretcher Limitations: No Limitations - History of Present Illness Initial Comments: Patient is a 57-year-old female that presents emergency room with complaints of right lower quadrant pain and nausea. Patient denies vomiting. Patient denies fever or chills. Patient states the pain is severe and is a 7 out of 10. Patient states the pain is worsening. Patient states the pain radiating to her right flank.. Patient denies blood in her stool. patient states she has constipation at times. MD Complaint: abdominal pain, flank pain -: Sudden Location: RLQ Radiation: R flank Migration to: no migration Severity: severe Severity scale (0 -10): 7 Quality: stabbing Consistency: constant Improves With: rest Worsens With: eating, movement Associated Symptoms: nausea, constipation. denies: vomiting, diarrhea, fever, chills, dysuria, hematemesis, hematochezia, melena, hematuria, anorexia - Related Data LMP (females 10-50): unknown Previous Rx's Medication Instructions Recorded Last Taken Type Omeprazole Magnesium [Prilosec Otc] 20 mg PO QDAY #3 tablet. 06/14/13 Unknown Rx Ondansetron [Zofran ODT TAB] 4 mg PO Q8HR PRN #14 tab.rapdis 11/20/18 Unknown Rx traMADol [Ultram 50 MG tab] 50 mg PO Q6HR PRN #10 tablet 11/20/18 Unknown Rx Allergies Allergy/AdvReac Type Severity Reaction Status Date / Time Iodinated Contrast- Oral and Allergy Rash Verified 06/26/17 17:43 IV Dye ED Review of Systems ROS: Stated complaint: ABD PAIN Other details as noted in HPI Constitutional: denies: chills, fever Eyes: denies: eye pain, eye discharge, vision change ENT: denies: ear pain, throat pain Respiratory: denies: cough, shortness of breath, wheezing Cardiovascular: denies: chest pain, palpitations Endocrine: no symptoms reported Gastrointestinal: abdominal pain, nausea, constipation. denies: vomiting, diarrhea Genitourinary: denies: urgency, dysuria, discharge Musculoskeletal: denies: back pain, joint swelling, arthralgia Skin: denies: rash, lesions Neurological: denies: headache, weakness, paresthesias Psychiatric: denies: anxiety, depression Hematological/Lymphatic: denies: easy bleeding, easy bruising ED Past Medical Hx - Past Medical History Previous Medical History?: Yes Hx Diabetes: Yes (BORDERLINE) Hx GERD: Yes Hx Arthritis: Yes (RHEUMATOID) Hx Seizures: Yes (CHILD) Hx Asthma: Yes Hx COPD: Yes Additional medical history: NERVE DAMAGE LOWER LEGS. COON'S CYST LEFT KNEE. HYPOTHYROID. HIGH CHOLESTEROL. VERTIGO. HARD OF HEARING. PSORIASIS. CATARACTS - Surgical History Past Surgical History?: Yes Additional Surgical History: Skin graft 2013, , Hernia, and tubal ligation - Family History Family history: no significant - Social History Smoking Status: Current Every Day Smoker Substance Use Type: None - Medications Home Medications: Home Medications Medication Instructions Recorded Confirmed Last Taken Type Omeprazole Magnesium [Prilosec Otc] 20 mg PO QDAY #3 tablet. 06/14/13 06/26/17 Unknown Rx Ondansetron [Zofran ODT TAB] 4 mg PO Q8HR PRN #14 tab.olman 11/20/18 Unknown Rx traMADol [Ultram 50 MG tab] 50 mg PO Q6HR PRN #10 tablet 11/20/18 Unknown Rx ED Physical Exam - General Limitations: No Limitations General appearance: alert, in no apparent distress - Head Head exam: Present: atraumatic, normocephalic - Eye Eye exam: Present: normal appearance - ENT ENT exam: Present: mucous membranes moist - Neck Neck exam: Present: normal inspection - Respiratory Respiratory exam: Present: normal lung sounds bilaterally. Absent: respiratory distress - Cardiovascular Cardiovascular Exam: Present: regular rate, normal rhythm. Absent: systolic murmur, diastolic murmur, rubs, gallop - GI/Abdominal GI/Abdominal exam: Present: soft, tenderness (rlq pain), normal bowel sounds. Absent: distended - Extremities Exam Extremities exam: Present: normal inspection - Back Exam Back exam: Present: normal inspection - Neurological Exam Neurological exam: Present: alert, oriented X3 - Psychiatric Psychiatric exam: Present: normal affect, normal mood - Skin Skin exam: Present: warm, dry, intact, normal color. Absent: rash ED Course Vital Signs 11/20/18 11/20/18 11/20/18 16:01 16:05 18:05 Temperature 98.2 F Pulse Rate 82 77 Respiratory 16 16 18 Rate Blood Pressure 126/67 Blood Pressure 126/73 [Right] O2 Sat by Pulse 97 100 99 Oximetry 11/20/18 19:15 Temperature 98.3 F Pulse Rate 79 Respiratory 18 Rate Blood Pressure Blood Pressure 116/71 [Right] O2 Sat by Pulse 100 Oximetry - Reevaluation(s) Reevaluation #1: Discussed all results and plan of care with patient. Patient agrees. Patient stable for discharge. Patient discharged home. Patient given discharge instructions. Patient voiced understanding of discharge instructions. 11/20/18 17:44 ED Medical Decision Making - Lab Data Result diagrams: 11/20/18 16:35 11/20/18 16:35 - Radiology Data Radiology results: report reviewed CT CHEST, ABDOMEN, AND PELVIS WITHOUT CONTRAST INDICATION: Right lower quadrant abdominal pain TECHNIQUE: Axial CT images were obtained through the chest, abdomen, and pelvis without contrast. All CT scans at this location are performed using CT dose reduction for ALARA by means of automated exposure control. COMPARISON: None available. FINDINGS: HEART: No significant abnormality. THORACIC AORTA: No significant abnormality. MEDIASTINUM and VINICIUS: No significant abnormality. LUNGS: No acute air space or interstitial disease. PLEURA: No significant pleural effusion. No pneumothorax. ADDITIONAL CHEST FINDINGS: None. LIVER: No significant abnormality. GALLBLADDER: No significant abnormality. BILE DUCTS: No significant abnormality. PANCREAS: No significant abnormality. SPLEEN: No significant abnormality. ADRENALS: No significant abnormality. RIGHT KIDNEY and URETER: No significant abnormality. LEFT KIDNEY and URETER: No significant abnormality. STOMACH and SMALL BOWEL: No significant abnormality. COLON: Sigmoid diverticulosis without diverticulitis. APPENDIX: Removed PERITONEUM: No free fluid. No free air. No fluid collection. LYMPH NODES: No significant adenopathy. AORTA and ARTERIES: No significant abnormality. IVC and VEINS: No significant abnormality. URINARY BLADDER: No significant abnormality. REPRODUCTIVE ORGANS: No significant abnormality. ADDITIONAL FINDINGS: None. SKELETAL SYSTEM: No significant abnormality. IMPRESSION: No acute abnormality. Sigmoid diverticulosis without diverticulitis. No appendix is identified in the appendix may have been surgically removed. - Medical Decision Making Patient is a 57-year-old female presents that presents to the ER with complaints of right lower quadrant abdominal pain.. The patient's CT was done and is unremarkable. Patient's finding consistent with gastroenteritis. Patient is stable for Discharge. Patient's labs unremarkable. Patient given discharge instructions. - Differential Diagnosis gastroenteritis. Nausea. Abdominal pain. Right lower quadrant pain. Con Critical care attestation.: If time is entered above; I have spent that time in minutes in the direct care of this critically ill patient, excluding procedure time. ED Disposition Clinical Impression: RLQ abdominal pain, Gastroenteritis, Nausea alone Disposition: TO HOME OR SELFCARE Is pt being admited?: No Does the pt Need Aspirin: No Condition: Stable Instructions: Gastroenteritis (ED), Acute Nausea and Vomiting (ED), Abdominal Pain (ED) Additional Instructions: Patient to follow-up with primary care in 2-3 days. Patient to follow up with GI in 2-3 days. Patient to return to ER if condition worsens. Patient's statements as directed. Patient to increase water. Patient to eata BRAT diet. Patient take Tylenol when necessary for pain. Prescriptions: traMADol [Ultram 50 MG tab] 50 mg PO Q6HR PRN #10 tablet PRN Reason: Pain Ondansetron [Zofran ODT TAB] 4 mg PO Q8HR PRN #14 tab.rapdis PRN Reason: Nausea And Vomiting Referrals: [facility] MD INÉS [Primary Care Provider] - 2-3 Days KYLE EPSTEIN MD [Staff Physician] - 2-3 Days Time of Disposition: 17:49
[2018-11-20 17:01] LABS: Bilirubin,Urine NEG (Negative); Blood,Urine NEG (Negative); Color,Urine Straw (Yellow); Protein,Urine <15 mg/dL mg/dL (Negative); RBC,Urine < 1.0 /HPF (0.0-6.0); Urobilinogen,Urine < 2.0 mg/dL (<2.0)
[2018-11-20 17:13] LABS: Alanine Aminotransferase 10 units/L (7-56); Albumin 4.3 g/dL (3.9-5); BUN/Creatinine Ratio 27; Blood Urea Nitrogen 16 mg/dL (7-17); Calcium 9.2 mg/dL (8.4-10.2); Hemolysis Index 2
--- NOTE | 2018-11-20 17:17 | Cat Scan Report ---
CT CHEST, ABDOMEN, AND PELVIS WITHOUT CONTRAST INDICATION: Right lower quadrant abdominal pain TECHNIQUE: Axial CT images were obtained through the chest, abdomen, and pelvis without contrast. All CT scans a t this location are performed using CT dose reduction for ALARA by means of automated exposure contro l. COMPARISON: None available. FINDINGS: HEART: No significant abnormality. THORACIC AORTA: No significant abnormality. MEDIASTINUM and VINICIUS: No significant abnormality. LUNGS: No acute air space or interstitial disease. PLEURA: No significant pleural effusion. No pneumothorax. ADDITIONAL CHEST FINDINGS: None. LIVER: No significant abnormality. GALLBLADDER: No significant abnormality. BILE DUCTS: No significant abnormality. PANCREAS: No significant abnormality. SPLEEN: No significant abnormality. ADRENALS: No significant abnormality. RIGHT KIDNEY and URETER: No significant abnormality. LEFT KIDNEY and URETER: No significant abnormality. STOMACH and SMALL BOWEL: No significant abnormality. COLON: Sigmoid diverticulosis without diverticulitis. APPENDIX: Removed PERITONEUM: No free fluid. No free air. No fluid collection. LYMPH NODES: No significant adenopathy. AORTA and ARTERIES: No significant abnormality. IVC and VEINS: No significant abnormality. URINARY BLADDER: No significant abnormality. REPRODUCTIVE ORGANS: No significant abnormality. ADDITIONAL FINDINGS: None. SKELETAL SYSTEM: No significant abnormality. IMPRESSION: No acute abnormality. Sigmoid diverticulosis without diverticulitis. No appendix is identified in the appendix may have been surgically removed. Signer Name: Jj Love MD Signed: 11/20/2018 5:13 PM Workstation Name: [id number]
[2018-11-20 17:20] LABS: Bilirubin,Direct < 0.2 mg/dL (0-0.2)
[2018-11-20] MEDS ORDERED: DILAUDID IV ONE (17:34)
[2018-11-20 17:41] LABS: Basophils # (Auto) 0.2 K/mm3 (0.0-0.1); Eosinophils % (Auto) 3.6 % (0.0-4.3); Lymphocytes # (Auto) 1.9 K/mm3 (1.2-5.4); Lymphocytes % (Auto) 24.3 % (13.4-35.0); Mean Corpuscular Volume 90 fl (79-97); Monocytes # (Auto) 0.6 K/mm3 (0.0-0.8); Monocytes % (Auto) 7.4 % (0.0-7.3); Platelet Count 162 K/mm3 (140-440); Red Blood Count 3.32 M/mm3 (3.65-5.03); Red Cell Distribution Width 14.8 % (13.2-15.2)
[2018-11-20 17:47] LABS: Basophils % (Auto) 1.9 % (0.0-1.8); Eosinophils # (Auto) 0.3 K/mm3 (0.0-0.4); Hemoglobin 9.7 gm/dl (10.1-14.3); Mean Corpuscular HGB Conc 32 % (30-34); Mean Platelet Volume 10.2 fl (6-12)
[2018-11-20 19:49] VITALS: BP 116/71
== END 2018-11-20 19:15 | disposition home or self-care (01) ==
LOC: ED 15:45
DX: K52.9 Noninfective gastroenteritis and colitis, unspecified (principal); E11.9 Type 2 diabetes mellitus without complications; K21.9 Gastro-esophageal reflux disease without esophagitis; J44.9 Chronic obstructive pulmonary disease, unspecified; F17.200 Nicotine dependence, unspecified, uncomplicated; M06.9 Rheumatoid arthritis, unspecified; E78.00 Pure hypercholesterolemia, unspecified; E03.9 Hypothyroidism, unspecified; L40.9 Psoriasis, unspecified; Z98.51 Tubal ligation status; Z98.890 Other specified postprocedural states; Z79.899 Other long term (current) drug therapy; Z91.041 Radiographic dye allergy status
CPT/HCPCS: 36415; 74176; 80048; 80076; 81001; 83690; 85025; 96374; 99284; J1170

== ENCOUNTER 2018-12-29 15:54 | Emergency (ER) | payer MEDICAID ==
[2018-12-29 16:08] VITALS: BP 115/73
[2018-12-29 17:10] LABS: Basophils # (Auto) 0.1 K/mm3 (0.0-0.1); Basophils % (Auto) 1.4 % (0.0-1.8); Eosinophils # (Auto) 0.3 K/mm3 (0.0-0.4); Eosinophils % (Auto) 3.9 % (0.0-4.3); Hematocrit 32.7 % (30.3-42.9); Hemoglobin 10.4 gm/dl (10.1-14.3); Lymphocytes # (Auto) 2.2 K/mm3 (1.2-5.4); Lymphocytes % (Auto) 24.6 % (13.4-35.0); Mean Corpuscular HGB Conc 32 % (30-34); Mean Corpuscular Volume 91 fl (79-97); Monocytes # (Auto) 0.7 K/mm3 (0.0-0.8); Monocytes % (Auto) 7.7 % (0.0-7.3); Platelet Count 176 K/mm3 (140-440)
[2018-12-29 17:33] LABS: BUN/Creatinine Ratio 25; Blood Urea Nitrogen 15 mg/dL (7-17); Calcium 8.6 mg/dL (8.4-10.2); Hemolysis Index 2
[2018-12-29] MEDS ORDERED: NACL 0.9% 1000 ML 1,000 ML IV ONE (19:32)
[2018-12-29] MEDS ORDERED: ZOFRAN IV ONE (19:33)
[2018-12-29] MEDS ORDERED: MORPHINE IV ONE (19:33)
--- NOTE | 2018-12-29 20:29 | Cat Scan Report ---
CT abdomen pelvis wo con INDICATION / CLINICAL INFORMATION: abdominal pain. TECHNIQUE: Noncontrast CT of the abdomen and pelvis with multiplanar reformats. All CT scans at this location ar e performed using CT dose reduction for ALARA by means of automated exposure control. COMPARISON: 11/20/2018 CT scan FINDINGS: LOWER CHEST: No significant abnormality. LIVER: No significant abnormality. GALLBLADDER: No significant abnormality. BILE DUCTS: No significant abnormality. PANCREAS: No significant abnormality. SPLEEN: No significant abnormality. ADRENALS: No significant abnormality. RIGHT KIDNEY and URETER: No significant abnormality. LEFT KIDNEY and URETER: No significant abnormality. STOMACH and SMALL BOWEL: No significant abnormality. COLON: Sigmoid diverticulosis is redemonstrated. No acute inflammatory changes. APPENDIX: Not seen, likely surgically absent. PERITONEUM: No free fluid. No free air. No fluid collection. LYMPH NODES: No significant adenopathy. AORTA and ARTERIES: No significant abnormality. IVC and VEINS: No significant abnormality. URINARY BLADDER: No significant abnormality. REPRODUCTIVE ORGANS: No significant abnormality. ADDITIONAL FINDINGS: None. SKELETAL SYSTEM: No significant abnormality. IMPRESSION: 1. No acute abnormality or significant change relative to 11/20/2018 Signer Name: Nato Dukes MD Signed: 12/29/2018 8:25 PM Workstation Name: [id number]
[2018-12-29 20:43] LABS: Bilirubin,Urine NEG (Negative); Blood,Urine NEG (Negative); Color,Urine Yellow (Yellow); Protein,Urine <15 mg/dL mg/dL (Negative); Urobilinogen,Urine < 2.0 mg/dL (<2.0)
[2018-12-29 20:48] LABS: WBC,Urine < 1.0 /HPF (0.0-6.0)
[2018-12-29] MEDS ORDERED: DECADRON IV ONE (23:33)
[2018-12-29] MEDS ORDERED: TORADOL IV ONE (23:34)
[2018-12-29] MEDS ORDERED: PERCOCET 5/325 PO ONE (23:34)
--- NOTE | 2018-12-30 00:31 | Emergency Department Report ---
ED General Adult HPI - General Chief complaint: Abdominal Pain Stated complaint: STOMACH PAIN Time Seen by Provider: 12/29/18 19:30 Source: patient Mode of arrival: Ambulatory Limitations: No Limitations - History of Present Illness Initial comments: Patient is a 58-year-old white female with a history of COPD, hypertension, chronic rheumatoid arthritis, chronic pain syndrome who presents to the ED with acute onset persistent nontraumatic left hip pain that radiates to the left lower quadrant abdomen with urinary frequency for the last 5 days, worse in the last 2 days. Patient denies fever, chills, nausea, vomiting, dysuria, vaginal bleeding, vaginal discharge, numbness and tingling or weakness of lower extremities bilaterally, heavy lifting, fall or traumatic injury. MD Complaint: LLQ pain; Left hip pain; Nausea and vomiting -: Sudden, days(s) (5) Location: abdomen (LLQ), lower extremity (left hip) Radiation: extremity (left hip), abdomen (LLQ), flank (left) Severity scale (0 -10): 7 Quality: stabbing, aching, sharp Consistency: constant Improves with: rest Worsens with: movement Associated Symptoms: denies other symptoms, shortness of breath (chronic baseline COPD). denies: confusion, chest pain, cough, diaphoresis, fever/chills, headaches, loss of appetite, malaise, nausea/vomiting, rash, seizure, syncope, weakness - Related Data Previous Rx's Medication Instructions Recorded Last Taken Type Omeprazole Magnesium [Prilosec Otc] 20 mg PO QDAY #3 tablet. 06/14/13 Unknown Rx Ketorolac [Toradol] 10 mg PO Q8H PRN #20 tablet 12/30/18 Unknown Rx Ondansetron [Zofran ODT TAB] 4 mg PO Q8HR PRN #14 tab.rapdis 12/30/18 Unknown Rx tiZANidine [Zanaflex 4mg TAB] 4 mg PO Q8H PRN #15 tablet 12/30/18 Unknown Rx traMADol [Ultram 50 MG tab] 50 mg PO Q6HR PRN #12 tablet 12/30/18 Unknown Rx Allergies Allergy/AdvReac Type Severity Reaction Status Date / Time Iodinated Contrast- Oral and Allergy Rash Verified 06/26/17 17:43 IV Dye ED Review of Systems ROS: Stated complaint: STOMACH PAIN Other details as noted in HPI Constitutional: denies: chills, fever Eyes: denies: eye pain, eye discharge, vision change ENT: denies: ear pain, throat pain Respiratory: denies: cough, shortness of breath, wheezing Cardiovascular: denies: chest pain, palpitations Endocrine: no symptoms reported Gastrointestinal: abdominal pain (LLQ), nausea. denies: diarrhea Genitourinary: denies: urgency, dysuria, discharge Musculoskeletal: arthralgia (left hip). denies: back pain, joint swelling Skin: denies: rash, lesions Neurological: denies: headache, weakness, paresthesias Psychiatric: denies: anxiety, depression Hematological/Lymphatic: denies: easy bleeding, easy bruising ED Past Medical Hx - Past Medical History Previous Medical History?: Yes Hx Diabetes: Yes (BORDERLINE) Hx GERD: Yes Hx Arthritis: Yes (RHEUMATOID) Hx Seizures: Yes (CHILD) Hx Asthma: Yes Hx COPD: Yes Additional medical history: NERVE DAMAGE LOWER LEGS. COON'S CYST LEFT KNEE. HYPOTHYROID. HIGH CHOLESTEROL. VERTIGO. HARD OF HEARING. PSORIASIS. CATARACTS - Surgical History Past Surgical History?: Yes Additional Surgical History: Skin graft 2013, , Hernia, and tubal ligation - Social History Smoking Status: Current Every Day Smoker Substance Use Type: None - Medications Home Medications: Home Medications Medication Instructions Recorded Confirmed Last Taken Type Omeprazole Magnesium [Prilosec Otc] 20 mg PO QDAY #3 tablet. 06/14/13 06/26/17 Unknown Rx Ketorolac [Toradol] 10 mg PO Q8H PRN #20 tablet 12/30/18 Unknown Rx Ondansetron [Zofran ODT TAB] 4 mg PO Q8HR PRN #14 tab.rapdis 12/30/18 Unknown Rx tiZANidine [Zanaflex 4mg TAB] 4 mg PO Q8H PRN #15 tablet 12/30/18 Unknown Rx traMADol [Ultram 50 MG tab] 50 mg PO Q6HR PRN #12 tablet 12/30/18 Unknown Rx ED Physical Exam - General Limitations: No Limitations General appearance: alert, in no apparent distress - Head Head exam: Present: atraumatic, normocephalic, normal inspection - Eye Eye exam: Present: normal appearance, PERRL, EOMI Pupils: Present: normal accommodation - ENT ENT exam: Present: normal exam, normal orophraynx, mucous membranes moist, TM's normal bilaterally, normal external ear exam - Neck Neck exam: Present: normal inspection, full ROM. Absent: tenderness, meningismus, lymphadenopathy, thyromegaly - Respiratory Respiratory exam: Present: normal lung sounds bilaterally. Absent: respiratory distress, wheezes, rales, stridor, chest wall tenderness, accessory muscle use, decreased breath sounds - Cardiovascular Cardiovascular Exam: Present: regular rate, normal rhythm, normal heart sounds. Absent: systolic murmur, diastolic murmur, rubs, gallop - GI/Abdominal GI/Abdominal exam: Present: soft, normal bowel sounds. Absent: distended, tenderness, guarding, rebound, hyperactive bowel sounds, hypoactive bowel sounds, organomegaly, mass - Rectal Rectal exam: Present: deferred - Extremities Exam Extremities exam: Present: normal inspection, tenderness (Palpable left hip joint tenderness with limited ROM due to pain), normal capillary refill. Absen t: full ROM (due to pain), pedal edema, joint swelling - Back Exam Back exam: Present: normal inspection, full ROM. Absent: tenderness, CVA tenderness (R), CVA tenderness (L), muscle spasm, paraspinal tenderness, vertebral tenderness - Neurological Exam Neurological exam: Present: alert, oriented X3, CN II-XII intact, normal gait, reflexes normal - Psychiatric Psychiatric exam: Present: normal affect, normal mood - Skin Skin exam: Present: warm, dry, intact, normal color. Absent: rash ED Course Vital Signs 12/29/18 16:07 Temperature 98.8 F Pulse Rate 97 H Respiratory 22 Rate Blood Pressure 115/73 - Reevaluation(s) Reevaluation #1: 12/30/18 00:33 This is a 58-year-old female with a history of COPD, chronic rheumatoid arthritis, hypertension who presented to the ED with worsening left hip pain that radiates to the left lower quadrant area over the abdomen with urinary frequency for the last 5 days. In the ED, patient is alert and oriented 3 and is not in distress resting comfortably in the chair normal vital signs. Lab test results were reviewed and are all unremarkable including urinalysis. Abdomen pelvis CT scan without contrast shows no acute abdomen or pelvis pathology. Patient was treated for pain in the ED and on reevaluation, patient's pain is well controlled with medications, patient discharged home on pain medications and advised follow-up with her pain clinic as previously scheduled. Patient was advised to return to the ED immediately if symptoms get worse. ED Medical Decision Making - Lab Data Result diagrams: 12/29/18 16:30 12/29/18 16:30 - Radiology Data Radiology results: report reviewed, image reviewed Abdomen pelvis CT scan without contrast shows no acute fractures, normal kidneys, normal liver, normal pancreas and no diverticulitis or small bowel obstruction. - Medical Decision Making This is a 58-year-old female with a history of COPD, chronic rheumatoid arthritis, hypertension who presented to the ED with worsening left hip pain th at radiates to the left lower quadrant area over the abdomen with urinary frequency for the last 5 days. In the ED, patient is alert and oriented 3 and is not in distress resting comfortably in the chair normal vital signs. Lab test results were reviewed and are all unremarkable including urinalysis. Abdomen pelvis CT scan without contrast shows no acute abdomen or pelvis pathology. Patient was treated for pain in the ED and on reevaluation, patient's pain is well controlled with medications, patient discharged home on pain medications and advised follow-up with her pain clinic as previously scheduled. Patient was advised to return to the ED immediately if symptoms get worse. - Differential Diagnosis Chronic degenerative Joint disease; Abdominal pain, acute UTI, SBO Critical care attestation.: If time is entered above; I have spent that time in minutes in the direct care of this critically ill patient, excluding procedure time. ED Disposition Clinical Impression: Chronic left hip pain, Chronic osteoarthritis Muscle strain of left hip Qualifiers: Encounter type: initial encounter Qualified Code(s): S76.012A - Strain of muscle, fascia and tendon of left hip, initial encounter Disposition: - TO HOME OR SELFCARE Is pt being admited?: No Does the pt Need Aspirin: No Condition: Stable Instructions: Abdominal Pain (ED), Arthralgia (ED), Muscle Strain (ED), Chronic Pain (ED) Additional Instructions: Take medications for pain as needed, drink plenty of fluids and follow-up with your primary care physician in 5-7 days for reevaluation. Return to the ED immediately if symptoms get worse. Prescriptions: Ketorolac [Toradol] 10 mg PO Q8H PRN #20 tablet PRN Reason: Pain traMADol [Ultram 50 MG tab] 50 mg PO Q6HR PRN #12 tablet PRN Reason: Pain tiZANidine [Zanaflex 4mg TAB] 4 mg PO Q8H PRN #15 tablet PRN Reason: Muscle Spasm Ondansetron [Zofran ODT TAB] 4 mg PO Q8HR PRN #14 tab.rapdis PRN Reason: Nausea And Vomiting Referrals: PRIMARY CARE,MD [Primary Care Provider] - 3-5 Days Time of Disposition: 00:29 Print Language: CHINESE
== END 2018-12-30 08:33 | disposition home or self-care (01) ==
LOC: ED 15:54
DX: S76.012A Strain of muscle, fascia and tendon of left hip, initial encounter (principal); M16.12 Unilateral primary osteoarthritis, left hip; R73.03 Prediabetes; K21.9 Gastro-esophageal reflux disease without esophagitis; M06.9 Rheumatoid arthritis, unspecified; J45.909 Unspecified asthma, uncomplicated; E03.9 Hypothyroidism, unspecified; E78.00 Pure hypercholesterolemia, unspecified; L40.9 Psoriasis, unspecified; H26.9 Unspecified cataract; F17.200 Nicotine dependence, unspecified, uncomplicated; Z96.81 Presence of artificial skin; Z98.51 Tubal ligation status; Z79.899 Other long term (current) drug therapy; Z91.041 Radiographic dye allergy status; X58.XXXA Exposure to other specified factors, initial encounter; Y93.89 Activity, other specified; Y92.89 Other specified places as the place of occurrence of the external cause; Y99.8 Other external cause status
CPT/HCPCS: 36415; 74176; 80048; 81001; 85025; 96374; 96375; 99284; J1100; J1885; J2270; J2405; J7030

== ENCOUNTER 2019-01-01 08:31 | Emergency (ER) | payer MEDICAID ==
--- NOTE | 2019-01-01 09:20 | Emergency Department Report ---
ED General Adult HPI - General Chief complaint: Headache Stated complaint: TREMORS Time Seen by Provider: 01/01/19 09:09 Source: patient Mode of arrival: Ambulatory Limitations: No Limitations - History of Present Illness Initial comments: 58-year-old female resident of the [facility] with a past medical history of DVT, rheumatoid arthritis, asthma, acid reflux, psoriasis, hypothyroidism and high cholesterol presents to the emergency department complaining of a one day history of non-progressing tremors to her upper and lower extremities associated with a headache which started last night in the frontal region, causing her ambulating complications. She reports no loss of bowel of or bladder. No low back pain. No blurred vision or loss of vision. No chest pain or palpitations. No fevers, chills, sweats no rashes. Consistency: constant Improves with: none Associated Symptoms: malaise. denies: diaphoresis, syncope, weakness - Related Data Previous Rx's Medication Instructions Recorded Last Taken Type Omeprazole Magnesium [Prilosec Otc] 20 mg PO QDAY #3 tablet. 06/14/13 Unknown Rx Ketorolac [Toradol] 10 mg PO Q8H PRN #20 tablet 12/30/18 Unknown Rx Ondansetron [Zofran ODT TAB] 4 mg PO Q8HR PRN #14 tab.rapdis 12/30/18 Unknown Rx tiZANidine [Zanaflex 4mg TAB] 4 mg PO Q8H PRN #15 tablet 12/30/18 Unknown Rx traMADol [Ultram 50 MG tab] 50 mg PO Q6HR PRN #12 tablet 12/30/18 Unknown Rx Butalb/Acetaminophen/Caffeine 1 cap PO Q8HR PRN #20 cap 01/01/19 Unknown Rx [Fioricet 50-300-40 mg CAP] Allergies Allergy/AdvReac Type Severity Reaction Status Date / Time Iodinated Contrast- Oral and Allergy Rash Verified 06/26/17 17:43 IV Dye ED Review of Systems ROS: Stated complaint: TREMORS Other details as noted in HPI Comment: All other systems reviewed and negative ED Past Medical Hx - Past Medical History Previous Medical History?: Yes Hx Diabetes: Yes (BORDERLINE) Hx GERD: Yes Hx Arthritis: Yes (RHEUMATOID) Hx Seizures: Yes (CHILD) Hx Asthma: Yes Hx COPD: Yes Additional medical history: NERVE DAMAGE LOWER LEGS. COON'S CYST LEFT KNEE. HYPOTHYROID. HIGH CHOLESTEROL. VERTIGO. HARD OF HEARING. PSORIASIS. CATARACTS - Surgical History Past Surgical History?: Yes Additional Surgical History: Skin graft 2013, , Hernia, and tubal ligation - Social History Smoking Status: Current Every Day Smoker Substance Use Type: None - Medications Home Medications: Home Medications Medication Instructions Recorded Confirmed Last Taken Type Omeprazole Magnesium [Prilosec Otc] 20 mg PO QDAY #3 tablet.dr 06/14/13 06/26/17 Unknown Rx Ketorolac [Toradol] 10 mg PO Q8H PRN #20 tablet 12/30/18 Unknown Rx Ondansetron [Zofran ODT TAB] 4 mg PO Q8HR PRN #14 tab.rapdis 12/30/18 Unknown Rx tiZANidine [Zanaflex 4mg TAB] 4 mg PO Q8H PRN #15 tablet 12/30/18 Unknown Rx traMADol [Ultram 50 MG tab] 50 mg PO Q6HR PRN #12 tablet 12/30/18 Unknown Rx Butalb/Acetaminophen/Caffeine 1 cap PO Q8HR PRN #20 cap 01/01/19 Unknown Rx [Fioricet 50-300-40 mg CAP] ED Physical Exam - General Limitations: No Limitations General appearance: alert, in no apparent distress - Head Head exam: Present: atraumatic, normocephalic - Eye Eye exam: Present: normal appearance, PERRL, EOMI Pupils: Present: normal accommodation - ENT ENT exam: Present: mucous membranes moist - Neck Neck exam: Present: normal inspection - Respiratory Respiratory exam: Present: normal lung sounds bilaterally. Absent: respiratory distress - Cardiovascular Cardiovascular Exam: Present: regular rate, normal rhythm. Absent: systolic murmur, diastolic murmur, rubs, gallop - GI/Abdominal GI/Abdominal exam: Present: soft, normal bowel sounds - Extremities Exam Extremities exam: Present: normal inspection, normal capillary refill - Back Exam Back exam: Present: normal inspection - Neurological Exam Neurological exam: Present: alert, oriented X3, CN II-XII intact, other (resting tremor to the upper extremities noted.) - Psychiatric Psychiatric exam: Present: normal affect, normal mood - Skin Skin exam: Present: warm, dry, intact, normal color. Absent: rash ED Course Vital Signs 01/01/19 08:38 Temperature 97.9 F Pulse Rate 77 Respiratory 22 Rate Blood Pressure 117/65 O2 Sat by Pulse 98 Oximetry ED Medical Decision Making - Lab Data Result diagrams: 01/01/19 10:26 01/01/19 10:26 - Radiology Data Radiology results: report reviewed (negative acute processes. 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 CT scan was often was unremarkable for acute process. Did show with Chiari 1 malformation. Laboratory data was relatively benign Critical care attestation.: If time is entered above; I have spent that time in minutes in the direct care of this critically ill patient, excluding procedure time. ED Disposition Clinical Impression: Peripheral neuropathy, Tremor, Cephalgia Disposition: TO HOME OR SELFCARE Is pt being admited?: No Does the pt Need Aspirin: No Condition: Stable Instructions: Peripheral Neuropathy (ED), Acute Headache (ED) Prescriptions: Butalb/Acetaminophen/Caffeine [Fioricet 50-300-40 mg CAP] 1 cap PO Q8HR PRN #20 cap PRN Reason: Headache [facility] - 3-5 Days TREASURE DIEGO MD [Referring] - 3-5 Days LEANDRO SEO MD [Referring] - 3-5 Days CONNOR CAZARES MD [Staff Physician] - 3-5 Days DELPHINE BARRAZA MD [Referring] - 3-5 Days DEVONTE MAYER MD [Staff Physician] - 3-5 Days BRITTANI SEXTON MD [Staff Physician] - 3-[address]ER MD [Staff Physician] - 3-5 Days DAYANA SÁNCHEZ MD [Staff Physician] - 3-5 Days
--- NOTE | 2019-01-01 10:31 | Cat Scan Report ---
CT HEAD WITHOUT CONTRAST INDICATION / CLINICAL INFORMATION: cephalgia and tremors. Headache. TECHNIQUE: Axial imaging performed from the skull apex through the skull base without the use of cont rast. Sagittal and coronal reformatted images. All CT scans at this location are performed using CT dose reduction for ALARA by means of automated exposure control. COMPARISON: 11/16/2018 FINDINGS: CEREBRAL PARENCHYMA: No significant abnormality. No acute territorial infarct. HEMORRHAGE: None. EXTRA-AXIAL SPACES: Normal in size and morphology for the patient's age. VENTRICULAR SYSTEM: Normal in size and morphology for the patient's age. MIDLINE SHIFT OR HERNIATION: None. CEREBELLUM / BRAINSTEM: Chiari I malformation is poorly demonstrated on this exam on the reconstructe d images but is confirmed from the previous study. CALVARIUM: No significant abnormality. ORBITS: Normal as visualized. PARANASAL SINUSES / MASTOID AIR CELLS: Normal as visualized. SOFT TISSUES of HEAD: No significant abnormality. ADDITIONAL FINDINGS: None. IMPRESSION: No acute intracranial abnormality. Chiari I malformation. Signer Name: Niko Caal Jr, MD Signed: 01/01/2019 10:27 AM Workstation Name: [id number]
[2019-01-01 10:51] LABS: Basophils # (Auto) 0.1 K/mm3 (0.0-0.1); Basophils % (Auto) 1.1 % (0.0-1.8); Eosinophils # (Auto) 0.3 K/mm3 (0.0-0.4); Eosinophils % (Auto) 4.1 % (0.0-4.3); Hematocrit 31.5 % (30.3-42.9); Hemoglobin 10.1 gm/dl (10.1-14.3); Lymphocytes # (Auto) 1.8 K/mm3 (1.2-5.4); Lymphocytes % (Auto) 26.3 % (13.4-35.0); Mean Corpuscular HGB Conc 32 % (30-34); Mean Corpuscular Volume 90 fl (79-97); Monocytes # (Auto) 0.5 K/mm3 (0.0-0.8); Platelet Count 146 K/mm3 (140-440); Red Blood Count 3.52 M/mm3 (3.65-5.03); Red Cell Distribution Width 15.1 % (13.2-15.2)
[2019-01-01 11:11] LABS: Alanine Aminotransferase 10 units/L (7-56); BUN/Creatinine Ratio 33; Blood Urea Nitrogen 20 mg/dL (7-17); Calcium 8.8 mg/dL (8.4-10.2); Hemolysis Index 10
[2019-01-01 14:11] VITALS: BP 120/68
== END 2019-01-01 14:10 | disposition home or self-care (01) ==
LOC: ED 08:31
DX: G62.9 Polyneuropathy, unspecified (principal); R25.1 Tremor, unspecified; R51 Headache; K21.9 Gastro-esophageal reflux disease without esophagitis; M06.9 Rheumatoid arthritis, unspecified; J44.9 Chronic obstructive pulmonary disease, unspecified; E03.9 Hypothyroidism, unspecified; F17.200 Nicotine dependence, unspecified, uncomplicated; Z98.51 Tubal ligation status; Z91.041 Radiographic dye allergy status; Z79.899 Other long term (current) drug therapy
CPT/HCPCS: 36415; 70450; 80053; 84443; 85025

== ENCOUNTER 2019-12-31 19:52 | Emergency (ER) | payer MEDICAID ==
--- NOTE | 2019-12-31 21:04 | Emergency Department Report ---
ED Fall HPI - General Chief Complaint: Fall Stated Complaint: AMS Time Seen by Provider: 12/31/19 20:58 Source: patient, EMS Mode of arrival: Stretcher Limitations: No Limitations - History of Present Illness Initial Comments: Patient is a 59-year-old female that presents emergency room with complaints of a fall. Patient states she fell backwards hit her head and she lost consciousness. Patient is complaining of a 10 out of 10 neck and head pain. Patient states that EMS put her in a c-collar. Patient states the pain is better with rest and worse with movement. Patient states she was able to ambulate after the event. Patient denies any other symptoms. Patient states that this event was witnessed. Patient states that her loss of consciousness was brief. Patient also complains of intermittent abdominal pain for 5 to 7 days. Patient states that the abdominal pain is a 0 out of 10 at this time. Patient states that it comes and goes. Patient states that at the worst it is a 3 out of 10. Patient states the abdominal pain is a generalized pain. Patient denies recent travel. Patient denies recent international travel. Patient denies exposure to the novel coronavirus. Patient denies sick contacts. Patient denies fever and chills. Patient denies cough. Patient denies diarrhea. Patient denies coming in contact with anybody with symptoms of the novel coronavirus. 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 denies: numbness, weakness, chest paint, shortness of breath, abdominal pain, hematuria, unable to walk, lightheaded, vertigo, confusion - Related Data Previous Rx's Medication Instructions Recorded Last Taken Type Omeprazole Magnesium [PriLOSEC Otc] 20 mg PO QDAY #3 tablet. 06/14/13 Unknown Rx Ketorolac [Toradol] 10 mg PO Q8H PRN #20 tablet 12/30/18 Unknown Rx tiZANidine [Zanaflex 4mg TAB] 4 mg PO Q8H PRN #15 tablet 12/30/18 Unknown Rx Butalb/Acetaminophen/Caffeine 1 cap PO Q8HR PRN #20 cap 01/01/19 Unknown Rx [Fioricet 50-300-40 mg CAP] Levothyroxine [Synthroid] 25 mcg PO DAILY@0600 #30 tablet 12/16/19 Unknown Rx Ondansetron [Zofran ODT TAB] 4 mg PO Q8HR PRN #14 tab.rapdis 12/16/19 Unknown Rx traMADoL [Ultram 50 MG tab] 50 mg PO Q6HR PRN #12 tablet 12/31/19 Unknown Rx Allergies Allergy/AdvReac Type Severity Reaction Status Date / Time coconut Allergy Unknown Verified 12/13/19 14:24 Iodinated Contrast Media Allergy Rash Verified 06/26/17 17:43 ED Review of Systems ROS: Stated complaint: AMS Other details as noted in HPI Constitutional: denies: chills, fever Eyes: denies: eye pain, eye discharge, vision change ENT: denies: ear pain, throat pain Respiratory: denies: cough, shortness of breath, wheezing Cardiovascular: denies: chest pain, palpitations Endocrine: no symptoms reported Gastrointestinal: denies: abdominal pain, nausea, diarrhea Genitourinary: denies: urgency, dysuria, discharge Musculoskeletal: denies: back pain, joint swelling, arthralgia Skin: denies: rash, lesions Neurological: as per HPI, headache. denies: weakness, paresthesias Psychiatric: denies: anxiety, depression Hematological/Lymphatic: denies: easy bleeding, easy bruising ED Past Medical Hx - Past Medical History Previous Medical History?: Yes Hx Diabetes: Yes (BORDERLINE) Hx GERD: Yes Hx Arthritis: Yes Hx Seizures: Yes Hx Asthma: Yes Hx COPD: Yes Additional medical history: NERVE DAMAGE LOWER LEGS. COON'S CYST LEFT KNEE. HYPOTHYROID. HIGH CHOLESTEROL. VERTIGO. HARD OF HEARING. PSORIASIS. CATARACTS - Surgical History Past Surgical History?: Yes Additional Surgical History: Skin graft 2013, , Hernia, and tubal ligation - Family History Family history: no significant - Social History Smoking Status: Current Every Day Smoker Substance Use Type: Alcohol - Medications Home Medications: Home Medications Medication Instructions Recorded Confirmed Last Taken Type Omeprazole Magnesium [PriLOSEC Otc] 20 mg PO QDAY #3 tablet. 06/14/13 06/26/17 Unknown Rx Ketorolac [Toradol] 10 mg PO Q8H PRN #20 tablet 12/30/18 Unknown Rx tiZANidine [Zanaflex 4mg TAB] 4 mg PO Q8H PRN #15 tablet 12/30/18 Unknown Rx Butalb/Acetaminophen/Caffeine 1 cap PO Q8HR PRN #20 cap 01/01/19 Unknown Rx [Fioricet 50-300-40 mg CAP] Levothyroxine [Synthroid] 25 mcg PO DAILY@0600 #30 tablet 12/16/19 Unknown Rx Ondansetron [Zofran ODT TAB] 4 mg PO Q8HR PRN #14 tab.rapdis 12/16/19 Unknown Rx traMADoL [Ultram 50 MG tab] 50 mg PO Q6HR PRN #12 tablet 12/31/19 Unknown Rx ED Physical Exam - General Limitations: Altered Mental Status General appearance: alert, in no apparent distress - Head Head exam: Present: atraumatic, normocephalic - Eye Eye exam: Present: normal appearance, PERRL Pupils: Present: normal accommodation - ENT ENT exam: Present: mucous membranes moist - Neck Neck exam: Present: normal inspection, tenderness. Absent: meningismus - Respiratory Respiratory exam: Present: normal lung sounds bilaterally. Absent: respiratory distress, wheezes, rales - Cardiovascular Cardiovascular Exam: Present: regular rate, normal rhythm. Absent: systolic murmur, diastolic murmur, rubs, gallop - GI/Abdominal GI/Abdominal exam: Present: soft, normal bowel sounds. Absent: distended, tenderness, guarding - Extremities Exam Extremities exam: Present: normal inspection - Back Exam Back exam: Present: normal inspection - Neurological Exam Neurological exam: Present: alert, oriented X3 - Psychiatric Psychiatric exam: Present: normal affect, normal mood - Skin Skin exam: Present: warm, dry, intact, normal color. Absent: rash ED Course Vital Signs 12/31/19 20:13 Temperature 98.2 F Pulse Rate 70 Respiratory 18 Rate Blood Pressure 130/72 O2 Sat by Pulse 99 Oximetry - Reevaluation(s) Reevaluation #1: C-collar removed. I discussed all results and clinical findings with patient. I discussed plan of care with patient. Patient agrees with plan of care. Patient is stable for discharge. Patient will be discharged home. Patient given discharge instructions. Patient voiced understanding of discharge instructions. 12/31/19 22:33 ED Medical Decision Making - Radiology Data Radiology results: report reviewed CT CERVICAL SPINE WITHOUT CONTRAST INDICATION / CLINICAL INFORMATION: Trauma. Patient fell sustaining neck injury. Neck pain and headache. TECHNIQUE: Axial CT images were obtained through the cervical spine. Sagittal and coronal reformatted images were produced. All CT scans at this location are performed using CT dose reduction for ALARA by means of automated exposure control. COMPARISON: CT cervical spine 12/13/2019 FINDINGS: ALIGNMENT: Patient's head is tilted towards the right at the time of this examination. No additional abnormalities of alignment are identified. There is no indication of traumatic subluxation. VERTEBRAE: No indication of fracture or bone destruction. DISC SPACES: Disc height is decreased at the C5-6 and C6-7 levels. INDIVIDUAL LEVEL ANALYSIS: C1-2: Anterior arch of C1 is enlarged. Loss of joint space is observed and osteophyte formation is observed consistent with osteoarthritic change at the atlantoaxial junction between the anterior arch of C1 and the odontoid process. C2-3: Left worse than right facet arthropathy is noted. Central spinal canal and right C3 nerve root neuroforamina are adequately maintained. Moderate left-sided foraminal stenosis is evident. C3-4: Left worse than right facet arthropathy is demonstrated. Left-sided uncovertebral arthritic changes also observed. There is severe left C4 nerve root neuroforaminal stenosis. Central spinal canal and right C4 nerve root neuroforamina are adequate in size. C4-5: Mild bilateral facet arthropathy is noted. Central spinal canal and neuroforamina are adequately maintained. C5-6: Loss of disc height is noted. Anterior osteophyte formation is observed. Uncovertebral arthritic change contributes to moderate left-sided and mild right-sided foraminal narrowing at the C6 nerve root level. Central spinal canal is adequately maintained. C6-7: Loss of disc height is noted. Anterior osteophyte formation is observed. C7-T1:No abnormality. Findings suggest the presence of bony ankylosis across the T1-2 facet joints and along the periphery of the T1-2 intervertebral disc. Extensive ossification of the nuchal ligament is noted in the upper thoracic region. CRANIOCERVICAL JUNCTION:No significant abnormality. SPINAL CANAL: The spinal canal is adequate in size throughout cervical region. PARASPINAL SOFT TISSUES: No significant abnormality. Note is made of a large right internal jugular venous diverticulum. ADDITIONAL FINDINGS: None. LUNG APICES: No significant abnormality of visualized lungs. IMPRESSION: 1. 1. No indication of fracture or traumatic subluxation. 2. Widespread cervical spondylosis. 3. Findings suggest ankylosis across the facet joints and along the periphery of the intervertebral disc at the T1-T2 level. CT HEAD WITHOUT CONTRAST INDICATION / CLINICAL INFORMATION: [place]. fall, pos loc.. TECHNIQUE: All CT scans at this location are performed using CT dose reduction for ALARA by means of automated exposure control. COMPARISON: None available. FINDINGS: HEMORRHAGE: No evidence of intracranial hemorrhage or extra-axial fluid collection. EXTRA-AXIAL SPACES: Cortical sulci, sylvian fissures and basilar cisterns have an unremarkable appearance. VENTRICULAR SYSTEM: Persistence of the cava septum pellucidum and cavum therapy is incidentally noted. The ventricular system is otherwise normal in size and configuration. CEREBRAL PARENCHYMA: No areas of abnormal brain parenchymal attenuation are identified. There is no indication of recent infarction. Bilateral basic ganglia physiological calcifications are again demonstrated. MIDLINE SHIFT OR HERNIATION: There is no mass effect. CEREBELLUM / BRAINSTEM: Brainstem and cerebellum have an unremarkable appearance. MIDLINE STRUCTURES:No abnormalities of the pituitary gland or pineal region are identified. CRANIOCERVICAL JUNCTION: Cerebellar tonsillar ectopia is noted. The left cerebellar tonsils descend through the foramen magnum over a distance of about 8 mm. This could reflect a diagnosis of Chiari I malformation. INTRACRANIAL VESSELS:No abnormalities are identified on this noncontrast head CT. ORBITS: Calcified atherosclerotic plaque is seen along the course of the cavernous segments of the internal carotid arteries bilaterally. SOFT TISSUES of HEAD: No significant abnormality. CALVARIUM: Evaluation of bone windows reveals no abnormalities. PARANASAL SINUSES / MASTOID AIR CELLS: Paranasal sinuses are free from inflammatory mucosal disease. Mastoid air cells are normally pneumatized. ADDITIONAL FINDINGS: None. IMPRESSION: 1. No acute intracranial abnormality. 2. There are about 8 mm of cerebellar tonsillar ectopia. Consider possible Chiari I malformation. - Medical Decision Making Patient is a 59-year-old female who presents emergency room with complaints of a fall and head injury and loss of consciousness and neck pain. Patient had CT of the head and neck. Patient CT of the head and neck were negative for acute findings. Patient is stable for discharge. Patient will be discharged home. - Differential Diagnosis Strain, strain, fracture, concussion, head injury, ICH Critical care attestation.: If time is entered above; I have spent that time in minutes in the direct care of this critically ill patient, excluding procedure time. ED Disposition Clinical Impression: Neck pain Fall Qualifiers: Encounter type: initial encounter Qualified Code(s): W19.XXXA - Unspecified fall, initial encounter Concussion Qualifiers: Encounter type: initial encounter Loss of consciousness presence/duration: with LOC of 30 min or less Qualified Code(s): S06.0X1A - Concussion with loss of consciousness of 30 minutes or less, initial encounter Head injury Qualifiers: Encounter type: initial encounter Qualified Code(s): S09.90XA - Unspecified injury of head, initial encounter Neck sprain Qualifiers: Encounter type: initial encounter Qualified Code(s): S13.9XXA - Sprain of joints and ligaments of unspecified parts of neck, initial encounter Disposition: TO HOME OR SELFCARE Is pt being admited?: No Does the pt Need Aspirin: No Condition: Stable Instructions: Concussion (ED), Minor Head Injury (ED), Post Concussion Syndrome (ED), Cervical Sprain (ED) Additional Instructions: Patient to follow-up with primary care in 2 to 3 days. Patient to follow-up with neurology, orthopedics, neurosurgery in 2 to 3 days. Patient to rest. Patient to increase water. Patient to avoid strenuous exercise or heavy lifting until cleared by Ortho and neurosurgery.. Patient to take Tylenol or ibuprofen as needed for pain. Patient to take meds as directed. Patient to return to the ER if condition worsens, changes or new symptoms arise. Prescriptions: traMADoL [Ultram 50 MG tab] 50 mg PO Q6HR PRN #12 tablet PRN Reason: Pain Referrals: PRIMARY CARE, [Primary Care Provider] - 2-3 Days TREASURE CAREY MD [Staff Physician] - 2-3 Days RAJNI PHOENIX II, MD [Staff Physician] - 2-[address]ER MD [Staff Physician] - 2-3 Days Time of Disposition: 22:38
--- NOTE | 2019-12-31 22:09 | Cat Scan Report ---
CT HEAD WITHOUT CONTRAST INDICATION / CLINICAL INFORMATION: [place]. fall, pos loc.. TECHNIQUE: All CT scans at this location are performed using CT dose reduction for ALARA by means of automated e xposure control. COMPARISON: None available. FINDINGS: HEMORRHAGE: No evidence of intracranial hemorrhage or extra-axial fluid collection. EXTRA-AXIAL SPACES: Cortical sulci, sylvian fissures and basilar cisterns have an unremarkable appear ance. VENTRICULAR SYSTEM: Persistence of the cava septum pellucidum and cavum therapy is incidentally noted . The ventricular system is otherwise normal in size and configuration. CEREBRAL PARENCHYMA: No areas of abnormal brain parenchymal attenuation are identified. There is no i ndication of recent infarction. Bilateral basic ganglia physiological calcifications are again demons trated. MIDLINE SHIFT OR HERNIATION: There is no mass effect. CEREBELLUM / BRAINSTEM: Brainstem and cerebellum have an unremarkable appearance. MIDLINE STRUCTURES:No abnormalities of the pituitary gland or pineal region are identified. CRANIOCERVICAL JUNCTION: Cerebellar tonsillar ectopia is noted. The left cerebellar tonsils descend t hrough the foramen magnum over a distance of about 8 mm. This could reflect a diagnosis of Chiari I m alformation. INTRACRANIAL VESSELS:No abnormalities are identified on this noncontrast head CT. ORBITS: Calcified atherosclerotic plaque is seen along the course of the cavernous segments of the in ternal carotid arteries bilaterally. SOFT TISSUES of HEAD: No significant abnormality. CALVARIUM: Evaluation of bone windows reveals no abnormalities. PARANASAL SINUSES / MASTOID AIR CELLS: Paranasal sinuses are free from inflammatory mucosal disease. Mastoid air cells are normally pneumatized. ADDITIONAL FINDINGS: None. IMPRESSION: 1. No acute intracranial abnormality. 2. There are about 8 mm of cerebellar tonsillar ectopia. Consider possible Chiari I malformation. Signer Name: Shahbaz Mendoza MD Signed: 12/31/2019 10:04 PM Workstation Name: [id number]
--- NOTE | 2019-12-31 22:16 | Cat Scan Report ---
CT CERVICAL SPINE WITHOUT CONTRAST INDICATION / CLINICAL INFORMATION: Trauma. Patient fell sustaining neck injury. Neck pain and headache. TECHNIQUE: Axial CT images were obtained through the cervical spine. Sagittal and coronal reformatted images wer e produced. All CT scans at this location are performed using CT dose reduction for ALARA by means of automated exposure control. COMPARISON: CT cervical spine 12/13/2019 FINDINGS: ALIGNMENT: Patient's head is tilted towards the right at the time of this examination. No additional abnormalities of alignment are identified. There is no indication of traumatic subluxation. VERTEBRAE: No indication of fracture or bone destruction. DISC SPACES: Disc height is decreased at the C5-6 and C6-7 levels. INDIVIDUAL LEVEL ANALYSIS: C1-2: Anterior arch of C1 is enlarged. Loss of joint space is observed and osteophyte formation is ob served consistent with osteoarthritic change at the atlantoaxial junction between the anterior arch o f C1 and the odontoid process. C2-3: Left worse than right facet arthropathy is noted. Central spinal canal and right C3 nerve root neuroforamina are adequately maintained. Moderate left-sided foraminal stenosis is evident. C3-4: Left worse than right facet arthropathy is demonstrated. Left-sided uncovertebral arthritic sachi nges also observed. There is severe left C4 nerve root neuroforaminal stenosis. Central spinal canal and right C4 nerve root neuroforamina are adequate in size. C4-5: Mild bilateral facet arthropathy is noted. Central spinal canal and neuroforamina are adequatel y maintained. C5-6: Loss of disc height is noted. Anterior osteophyte formation is observed. Uncovertebral arthriti c change contributes to moderate left-sided and mild right-sided foraminal narrowing at the C6 nerve root level. Central spinal canal is adequately maintained. C6-7: Loss of disc height is noted. Anterior osteophyte formation is observed. C7-T1:No abnormality. Findings suggest the presence of bony ankylosis across the T1-2 facet joints and along the periphery of the T1-2 intervertebral disc. Extensive ossification of the nuchal ligament is noted in the upper thoracic region. CRANIOCERVICAL JUNCTION:No significant abnormality. SPINAL CANAL: The spinal canal is adequate in size throughout cervical region. PARASPINAL SOFT TISSUES: No significant abnormality. 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 ADDITIONAL FINDINGS: None. LUNG APICES: No significant abnormality of visualized lungs. IMPRESSION: 1. 1. No indication of fracture or traumatic subluxation. 2. Widespread cervical spondylosis. 3. Findings suggest ankylosis across the facet joints and along the periphery of the intervertebral d isc at the T1-T2 level. Signer Name: Shahbaz Mendoza MD Signed: 12/31/2019 10:12 PM Workstation Name: [id number]
[2019-12-31 23:05] VITALS: BP 124/62
== END 2019-12-31 23:00 | disposition home or self-care (01) ==
LOC: ED 19:52
DX: S06.0X9A Concussion with loss of consciousness of unspecified duration, initial encounter (principal); S13.9XXA Sprain of joints and ligaments of unspecified parts of neck, initial encounter; E11.9 Type 2 diabetes mellitus without complications; K21.9 Gastro-esophageal reflux disease without esophagitis; M19.91 Primary osteoarthritis, unspecified site; J44.9 Chronic obstructive pulmonary disease, unspecified; R56.9 Unspecified convulsions; F17.200 Nicotine dependence, unspecified, uncomplicated; Z98.51 Tubal ligation status; Z98.890 Other specified postprocedural states; Z79.899 Other long term (current) drug therapy; Z91.018 Allergy to other foods; Z88.8 Allergy status to other drugs, medicaments and biological substances; W19.XXXA Unspecified fall, initial encounter; Y93.89 Activity, other specified; Y92.89 Other specified places as the place of occurrence of the external cause; Y99.8 Other external cause status
CPT/HCPCS: 70450; 72125

== ENCOUNTER 2020-01-22 04:21 | Emergency (ER) | payer MEDICAID ==
[2020-01-22 04:33] VITALS: BP 107/61
--- NOTE | 2020-01-22 04:49 | Emergency Department Report ---
ED General Adult HPI - General Chief complaint: Extremity Problem,Nontraumatic Stated complaint: FOOT PAIN PUI?: No Time Seen by Provider: 01/22/20 04:25 Source: patient, EMS Mode of arrival: Stretcher Limitations: No Limitations - History of Present Illness Initial comments: Patient is a 59-year-old female that presents emergency room with weakness. Patient states she is having leg weakness. Patient states it started 3 years ago. Patient states she wants to be seen today. Patient states she just left the hospital. Patient is oriented x4. Patient ambulatory in the ER. Patient denies chest pain shortness of breath. Patient denies headache. Patient denies loss of consciousness. Patient denies any other symptoms. Patient denies recent travel. Patient denies recent international travel. Patient denies exposure to the novel coronavirus. Patient denies sick contacts. Patient denies fever and chills. Patient denies cough. Patient denies diarrhea. Patient denies coming in contact with anybody with symptoms of the novel coronavirus. -: Sudden Location: lower extremity Severity scale (0 -10): 0 Consistency: constant Improves with: none, rest Worsens with: none, movement Associated Symptoms: weakness. denies: confusion, chest pain, cough, diaphoresis, fever/chills, headaches, loss of appetite, malaise, nausea/vomiting, rash, seizure, shortness of breath, syncope Treatments Prior to Arrival: none - Related Data Home Medications Medication Instructions Recorded Confirmed Last Taken Albuterol Mdi (or & Nicu Only) 2 puff IH QID PRN 01/02/20 01/02/20 Unknown [ProAir HFA Inhaler] AtorvaSTATin [Lipitor] 40 mg PO QHS 01/02/20 01/02/20 Unknown Budesonide/Formoterol Fumarate 2 puff PO BID 01/02/20 01/02/20 Unknown [Symbicort 160-4.5 Mcg Inhaler] Meclizine [Antivert] 25 mg PO BID PRN 01/02/20 01/02/20 Unknown Previous Rx's Medication Instructions Recorded Last Taken Type Butalb/Acetamin/Caff 50-325-40 1 tab PO Q8H PRN #10 tablet 01/17/20 Unknown Rx [Fioricet 50-325-40] Levothyroxine [Synthroid] 200 mcg PO DAILY@0600 #30 tablet 01/17/20 Unknown Rx levETIRAcetam [Keppra TAB] 500 mg PO BID #60 tablet 01/17/20 Unknown Rx Allergies Allergy/AdvReac Type Severity Reaction Status Date / Time coconut Allergy Unknown Verified 12/13/19 14:24 Iodinated Contrast Media Allergy Rash Verified 06/26/17 17:43 ED Review of Systems ROS: Stated complaint: FOOT PAIN Other details as noted in HPI Constitutional: denies: chills, fever Eyes: denies: eye pain, eye discharge, vision change ENT: denies: ear pain, throat pain Respiratory: denies: cough, shortness of breath, wheezing Cardiovascular: denies: chest pain, palpitations Endocrine: no symptoms reported Gastrointestinal: denies: abdominal pain, nausea, diarrhea Genitourinary: denies: urgency, dysuria, discharge Musculoskeletal: denies: back pain, joint swelling, arthralgia Skin: denies: rash, lesions Neurological: weakness. denies: headache, paresthesias Psychiatric: denies: anxiety, depression Hematological/Lymphatic: denies: easy bleeding, easy bruising ED Past Medical Hx - Past Medical History Previous Medical History?: Yes Hx Diabetes: Yes (BORDERLINE) Hx GERD: Yes Hx Arthritis: Yes Hx Seizures: Yes Hx Asthma: Yes Hx COPD: Yes Additional medical history: NERVE DAMAGE LOWER LEGS. COON'S CYST LEFT KNEE. HYPOTHYROID. HIGH CHOLESTEROL. VERTIGO. HARD OF HEARING. PSORIASIS. CATARACTS - Surgical History Past Surgical History?: Yes Additional Surgical History: Skin graft 2013, , Hernia, and tubal ligation - Family History Family history: no significant - Social History Smoking Status: Current Every Day Smoker Substance Use Type: None - Medications Home Medications: Home Medications Medication Instructions Recorded Confirmed Last Taken Type Albuterol Mdi (or & Nicu Only) 2 puff IH QID PRN 01/02/20 01/02/20 Unknown History [ProAir HFA Inhaler] AtorvaSTATin [Lipitor] 40 mg PO QHS 01/02/20 01/02/20 Unknown History Budesonide/Formoterol Fumarate 2 puff PO BID 01/02/20 01/02/20 Unknown History [Symbicort 160-4.5 Mcg Inhaler] Meclizine [Antivert] 25 mg PO BID PRN 09/06/20 09/06/20 Unknown History Butalb/Acetamin/Caff 50-325-40 1 tab PO Q8H PRN #10 tablet 01/17/20 Unknown Rx [Fioricet 50-325-40] Levothyroxine [Synthroid] 200 mcg PO DAILY@0600 #30 tablet 01/17/20 Unknown Rx levETIRAcetam [Keppra TAB] 500 mg PO BID #60 tablet 01/17/20 Unknown Rx ED Physical Exam - General Limitations: No Limitations General appearance: alert, in no apparent distress - Head Head exam: Present: atraumatic, normocephalic - Eye Eye exam: Present: normal appearance, PERRL Pupils: Present: normal accommodation - ENT ENT exam: Present: mucous membranes moist - Neck Neck exam: Present: normal inspection - Respiratory Respiratory exam: Present: normal lung sounds bilaterally. Absent: respiratory distress - Cardiovascular Cardiovascular Exam: Present: regular rate, normal rhythm. Absent: systolic murmur, diastolic murmur, rubs, gallop - GI/Abdominal GI/Abdominal exam: Present: soft, normal bowel sounds - Extremities Exam Extremities exam: Present: normal inspection - Back Exam Back exam: Present: normal inspection - Neurological Exam Neurological exam: Present: alert, oriented X3, CN II-XII intact, normal gait, reflexes normal. Absent: abnormal gait, motor sensory deficit - Psychiatric Psychiatric exam: Present: normal affect, normal mood - Skin Skin exam: Present: warm, dry, intact, normal color. Absent: rash ED Course Vital Signs 01/22/20 01/22/20 04:29 04:36 Temperature 97.6 F 97.8 F Pulse Rate 73 77 Respiratory 18 20 Rate Blood Pressure 107/61 Blood Pressure 107/61 [Right] O2 Sat by Pulse 97 97 Oximetry - Reevaluation(s) Reevaluation #1: During initial evaluation,. Patient ambulated without difficulty. Patient states she was having a seizure while walking. Patient began to shake and did n ot fall and continue to walk. Patient states this is her seizure. Patient states that she wants to stay in the hospital and does not want a return neurology. Patient states that she actually did not have any weakness or falls but rather came to the hospital because she was lonely 01/22/20 04:41 Reevaluation #2: I discussed all clinical findings with patient. I discussed plan of care with patient. Patient agrees with plan of care. Patient is stable for discharge. Patient will be discharged home. Patient given discharge instructions. Patient voiced understanding of discharge instructions. 01/22/20 04:52 ED Medical Decision Making - Medical Decision Making Patient is a 59-year-old female that presents emergency room with complaints of weakness and falls. Patient after initial evaluation states that she actually did not fall but rather came to the hospital because she was lonely at home. Patient also during this evaluation was ambulated difficulties but started to shake her arms and stated she was having a seizure. Patient did not lose consciousness or fall to the ground. Patient states this is her type of seizure that she has. Patient was alert and oriented during her entire seizure. Patient does not require further emergency medical services. - Differential Diagnosis Malingering, leg weakness, Critical care attestation.: If time is entered above; I have spent that time in minutes in the direct care of this critically ill patient, excluding procedure time. ED Disposition Clinical Impression: Weakness Disposition: DC-01 TO HOME OR SELFCARE Is pt being admited?: No Does the pt Need Aspirin: No Condition: Stable Instructions: Weakness (ED) Additional Instructions: Patient to follow-up with primary care in 2 to 3 days. Patient to follow-up with neurologist in 2 to 3 days. Patient to rest. Patient to increase water. Patient to avoid strenuous exercise or heavy lifting until cleared by neurologist. Patient to take Tylenol or ibuprofen as needed for pain. Patient to continue all medications.. Patient to return to the ER if condition worsens, changes or new symptoms arise. Referrals: PRIMARY CARE, [Primary Care Provider] - 2-3 Days Time of Disposition: 04:55
== END 2020-01-22 07:10 | disposition home or self-care (01) ==
LOC: ED 04:21
DX: R53.1 Weakness (principal); E11.9 Type 2 diabetes mellitus without complications; K21.9 Gastro-esophageal reflux disease without esophagitis; M13.88 Other specified arthritis, other site; J44.9 Chronic obstructive pulmonary disease, unspecified; E78.00 Pure hypercholesterolemia, unspecified; F17.200 Nicotine dependence, unspecified, uncomplicated; Z98.51 Tubal ligation status; Z98.890 Other specified postprocedural states; Z79.899 Other long term (current) drug therapy; Z91.018 Allergy to other foods; Z91.041 Radiographic dye allergy status
CPT/HCPCS: 99283

== ENCOUNTER 2020-02-13 18:00 | Emergency (ER) | payer MEDICAID ==
[2020-02-13] MEDS ORDERED: levETIRAcetam 1000 MG/NS 0.75% 1,000 MG/100 ML BAG IV ONE (18:11)
--- NOTE | 2020-02-13 18:11 | Emergency Department Report ---
ED Seizure HPI - General Stated Complaint: AMS Time Seen by Provider: 02/13/20 18:06 Source: patient, EMS, old records reviewed Mode of arrival: Stretcher Limitations: No Limitations - History of Present Illness Initial Comments: This is a 59-year-old female with history of COPD, hypothyroidism and epilepsy who presents with altered mental status. Paramedics witnessed 20 secong long seizure activity. Patient will follow commands. However she has limited speech. She moves all extremities. When I asked that she is in pain she says "no". She currently lives in a personal retirement. Patient was diagnosed in the hospitalist last month for in this hospital last month with COVID-19 infection. Medications: Diphenhydramine Amitriptyline Gabapentin Trazodone Proair Cyclobenzaprine Symbicort Atorvastatin Montelukast Daliresp Pantoprazole Cetirizine Meclizine Bupropion Complaint: seizure, possible seizure -: This afternoon Description of Episode: loss of consciousness, tonic-clonic movement Witnessed:: Yes Trauma: No Seizure History: known seizure disorder Place: home (Personal-retirement) Treatments Prior to Arrival: none - Related Data Home Medications Medication Instructions Recorded Confirmed Last Taken Albuterol Mdi (or & Nicu Only) 2 puff IH QID PRN 01/02/20 01/02/20 Unknown [ProAir HFA Inhaler] AtorvaSTATin [Lipitor] 40 mg PO QHS 01/02/20 01/02/20 Unknown Budesonide/Formoterol Fumarate 2 puff PO BID 01/02/20 01/02/20 Unknown [Symbicort 160-4.5 Mcg Inhaler] Meclizine [Antivert] 25 mg PO BID PRN 01/02/20 01/02/20 Unknown Previous Rx's Medication Instructions Recorded Last Taken Type Butalb/Acetamin/Caff 50-325-40 1 tab PO Q8H PRN #10 tablet 01/17/20 Unknown Rx [Fioricet 50-325-40] Levothyroxine [Synthroid] 200 mcg PO DAILY@0600 #30 tablet 01/17/20 Unknown Rx levETIRAcetam [Keppra TAB] 500 mg PO BID #60 tablet 01/17/20 Unknown Rx Allergies Allergy/AdvReac Type Severity Reaction Status Date / Time coconut Allergy Unknown Verified 12/13/19 14:24 Iodinated Contrast Media Allergy Rash Verified 06/26/17 17:43 ED Review of Systems ROS: Stated complaint: AMS Other details as noted in HPI Comment: Unobtainable due to pts medical conditions (Limited due to postictal state) ED Past Medical Hx - Past Medical History Previous Medical History?: Yes Hx Diabetes: Yes (BORDERLINE) Hx GERD: Yes Hx Arthritis: Yes Hx Seizures: Yes Hx Asthma: Yes Hx COPD: Yes Additional medical history: NERVE DAMAGE LOWER LEGS. COON'S CYST LEFT KNEE. HYPOTHYROID. HIGH CHOLESTEROL. VERTIGO. HARD OF HEARING. PSORIASIS. CATARACTS - Surgical History Additional Surgical History: Skin graft 2013, , Hernia, and tubal ligation - Social History Smoking Status: Current Every Day Smoker Substance Use Type: None - Medications Home Medications: Home Medications Medication Instructions Recorded Confirmed Last Taken Type Albuterol Mdi (or & Nicu Only) 2 puff IH QID PRN 01/02/20 01/02/20 Unknown History [ProAir HFA Inhaler] AtorvaSTATin [Lipitor] 40 mg PO QHS 01/02/20 01/02/20 Unknown History Budesonide/Formoterol Fumarate 2 puff PO BID 01/02/20 01/02/20 Unknown History [Symbicort 160-4.5 Mcg Inhaler] Meclizine [Antivert] 25 mg PO BID PRN 01/02/20 01/02/20 Unknown History Butalb/Acetamin/Caff 50-325-40 1 tab PO Q8H PRN #10 tablet 01/17/20 Unknown Rx [Fioricet 50-325-40] Levothyroxine [Synthroid] 200 mcg PO DAILY@0600 #30 tablet 01/17/20 Unknown Rx levETIRAcetam [Keppra TAB] 500 mg PO BID #60 tablet 01/17/20 Unknown Rx ED Physical Exam - General General appearance: in no apparent distress, lethargic - Head Head exam: Present: atraumatic, normocephalic - Eye Eye exam: Present: normal appearance - ENT ENT exam: Present: mucous membranes moist - Neck Neck exam: Present: normal inspection, full ROM - Respiratory Respiratory exam: Present: normal lung sounds bilaterally. Absent: respiratory distress, wheezes, rales, rhonchi - Cardiovascular Cardiovascular Exam: Present: regular rate, normal rhythm, normal heart sounds. Absent: systolic murmur, diastolic murmur, rubs, gallop - GI/Abdominal GI/Abdominal exam: Present: soft, normal bowel sounds. Absent: distended, tenderness, guarding, rebound - Extremities Exam Extremities exam: Present: normal inspection - Neurological Exam Neurological exam: Present: other (Lethargic) - Psychiatric Psychiatric exam: Present: flat affect - Skin Skin exam: Present: warm, dry, intact, normal color. Absent: rash ED Course Vital Signs 02/13/20 19:30 Temperature 98.4 F Pulse Rate 76 Respiratory 20 Rate Blood Pressure 122/76 [Left] O2 Sat by Pulse 94 Oximetry ED Medical Decision Making - Medical Decision Making Breakthrough seizure history of epilepsy. Patient has has been awake alert for several hours. After 4 hours total observation, patient is ambulatory and insightful. She received IV Keppra load. She denies any symptoms at this time. She is discharged home. Critical care attestation.: If time is entered above; I have spent that time in minutes in the direct care of this critically ill patient, excluding procedure time. ED Disposition Clinical Impression: Seizure, Epilepsy Disposition: DC-01 TO HOME OR SELFCARE Is pt being admited?: No Does the pt Need Aspirin: No Condition: Stable Instructions: Epilepsy (ED)
[2020-02-14 16:19] VITALS: BP 112/68
== END 2020-02-14 16:12 | disposition home or self-care (01) ==
LOC: ED 18:00
DX: G40.909 Epilepsy, unspecified, not intractable, without status epilepticus (principal); E11.9 Type 2 diabetes mellitus without complications; K21.9 Gastro-esophageal reflux disease without esophagitis; M13.88 Other specified arthritis, other site; J44.9 Chronic obstructive pulmonary disease, unspecified; F17.200 Nicotine dependence, unspecified, uncomplicated; E78.00 Pure hypercholesterolemia, unspecified; E05.00 Thyrotoxicosis with diffuse goiter without thyrotoxic crisis or storm; Z98.51 Tubal ligation status; Z98.890 Other specified postprocedural states; Z91.041 Radiographic dye allergy status; Z91.018 Allergy to other foods
CPT/HCPCS: 96365; 96366; 99284; J1953